=== PATIENT | female | born 1950 | race Caucasian/White ===

== ENCOUNTER 2024-07-29 13:44 | Outpatient (AMB) | payer OTHER, SELFPAY ==
[2024-07-29 13:55] VITALS: BP 135/89; PULSE 72; RESP 18; TEMP 36.2; O2SAT 97; BMI 33.5
--- NOTE | 2024-07-29 13:55 | PD.ORTHCLVIS ---
Vital signs 07/29/24 13:55 Height 1.65 m Height Method Stated Weight 91.172 kg Weight Measurement Method Standing Scale BMI 33.5 BP 135/89 H Blood Pressure Source Automatic Cuff Blood Pressure Location Right Upper Arm Position Sitting Respiration 18 Pulse 72 Pulse Source Monitor Temp 97.1 F Temp Source Temporal Artery Scan Pulse Oximetry (%) 97 Oxygen Delivery Method Room Air Med/Allergies Allergies & Medications Allergies shellfish derived Allergy (Mild, Verified 07/29/24 13:56) Mouth,throat, swelling iodine Allergy (Unknown, Verified 07/29/24 13:56) Medication Reconciliation duloxetine 60 mg capsule,delayed release (Cymbalta) 60 mg PO BID 01/10/19 [History Confirmed 07/29/24] gabapentin 300 mg tablet 300 mg PO BID 05/18/21 [History Confirmed 07/29/24] glipizide 2.5 mg tablet, extended release 24 hr 2.5 mg PO DAILY 05/18/21 [History Confirmed 07/29/24] lisinopril 2.5 mg tablet 2.5 mg PO QDAY 05/18/21 [History Confirmed 07/29/24] diclofenac potassium 50 mg tablet 50 mg PO QDAY 07/18/23 [History Confirmed 07/29/24] esomeprazole magnesium 40 mg capsule,delayed release 40 mg PO QDAY 07/18/23 [History Confirmed 07/29/24] meloxicam 7.5 mg tablet 7.5 mg PO BID #45 tabs 07/18/23 [Rx Confirmed 07/29/24] tizanidine 2 mg capsule 2 mg PO Q8H PRN 07/18/23 [History Confirmed 07/29/24] meloxicam 7.5 mg tablet 7.5 mg PO BID #45 tabs 10/27/23 [Rx Confirmed 07/29/24] gabapentin 600 mg tablet 600 mg PO QDAY 07/29/24 [History Confirmed 07/29/24] lidocaine 4 % topical patch 1 patch topical QDAY PRN 07/29/24 [History Confirmed 07/29/24] Subjective Visit Visit for: follow up visit, knee and injections Immunization / Flu Flu Vaccine in the Last 12 Months: Yes Flu Vaccine Exclusion Criteria: Already Received History of Present Illness Chief complaint: KNEE INJECTIONS Date of injury / onset of symptoms: last friday Patient is a pleasant 72-year-old female whose had several years of left knee pain. The patient had an injection 5 months ago and she is doing well. The injections to started wearing off and she would like to get new ones today. 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 Exam Exam Patient is in no acute distress and is cooperative with the examination today. Breathing is nonlabored. Patient has a normal mood and affect. The patient has a gait that is antalgic Bilateral extremities were evaluated and demonstrates sensation intact to light touch. Palpable pedal pulses are present. No significant edema is present. Bilateral hips were examined. The patient has no pain with log roll of the hips. Internal rotation to 30 degrees and external rotation to 30 degrees is painless. Negative FADIR. Right knee was examined today. The right knee is in reasonable alignment. Range of motion from 0-120 degrees. Knee is stable to varus and valgus as well as AP translation with <5mm. Patient has a negative McMurrays. There is no pain with patellofemoral compression and no crepitus noted. The knee is nontender to palpation. Left knee was examined today. The left knee is in [neutral] alignment. Range of motion from [0-110] degrees. Knee is stable to varus and valgus as well as AP translation with <5mm. Patient has a [negative] McMurrays. There is [no] pain with patellofemoral compression and [no] crepitus noted. The knee is tender to palpation [diffusely]. We obtained new weightbearing x-rays. This demonstrates severe joint space narrowing worse on the left than the right. There is complete obliteration of the joint space. There is varus arthritis Assessment and Plan Problem List (1) Arthritis of both knees: Status: Acute Plan: 72-year-old female with severe left knee osteoarthritis worse on the left than the right. We discussed nonoperative and operative options. She has done really well with cortisone injections would like new ones today Recommend knee cortisone injections as patient would like to proceed with conservative treatment at this time. The risks and benefits of the procedure were reviewed with the patient and patient gave verbal consent to continue with the procedure. Procedure: performed by Dr. Cook Using sterile technique the Bilateral knees were thoroughly prepped with alcohol, and approximately 1 cc of Kenalog 40 mg/mL and 4 cc of 1% lidocaine was injected into each knee without resistance into the medial tibial femoral joint space. The patient tolerated the procedure. Advanced Care Planning Discussion Advance care planning discussed with:: patient Office Procedures GNS Level of Care Nursing/Assessment Patient Status: Established Patient Nursing Assessment/Reassesment: Medication Reconciliation, Update PMH in EMR and Vital Signs Coordination of Care: Complex Care and Chronic Disease 1-5, Education Complex Pt/Fam, Consent,records obtained, informed consent, Results/Orders obtained and Staff clarify orders New Patient Charge New Patient Point Charge: [employer]ER Level 3 (0585-9315) Established Patient Charge Established Patient Point Assignment: 95 Surgical Proc/IM SQ injection Major Surgical Procedure: Yes (KNEE INJECTIONS ) Medication Given Medication Given Medication Given: Yes Documented Dose Given: 8 Route: Infiitration Medication Given Medication Given Medication Given: Yes Documented Dose Given: 2 Route: Infiitration Office Meds Xylocaine 10 mg/mL (1 %) injection solution Performing Provider: Eric Cook MD Performing Location: [facility] Administered by: Eric Cook MD on 07/29/24 14:35 Dose Route Admin Location Dispensed Lot Number Expiration Date [facility] Ball Holder 40 mL Infiltration 40 mL [id number] [employer] triamcinolone acetonide 40 mg/mL suspension for injection Performing Provider: Eric Cook MD Performing Location: [facility] Administered by: Eric Cook MD on 07/29/24 14:35 Dose Route Admin Location Dispensed Lot Number Expiration Date [facility] Ball Holder 80 mg intra-articular 2 mL [id number] [employer] Past Medical History Past Medical History Have you ever been diagnosed with any of the following: Neurological Problems Cerebrovascular Accident (CVA): No Seizures: No Peripheral Neuropathy: Yes Cardiology Problems Hypercholesterolemia: Yes Congestive Heart Failure: No Edema: Yes Hypertension: Yes Respiratory Problems Chronic Obstructive Pulmonary Disease (COPD): No Stomache/Intestinal Problems Diverticulitis: Yes Hemorrhoids: Yes Gastroesophageal Reflux Disease: Yes Genital/Urinary Problems Renal Disease: No Reproductive Problems Pelvic Inflammatory Disease: No Head,Eye,Nose,Throat Problems Cataracts: Yes Endocrine Problems Diabetes Mellitus Type 1: No Diabetes Mellitus Type 2: Yes Other Problems Hospitalization: Yes Down Syndrome: No Developmental Delay: No Shingles: No Falls: No Blood Transfusions: No Blood Transfusion Reaction: No Anesthesia Reactions: Yes Organ Transplant: No Cancer: No Surgical History Hysterectomy: Yes
== END 2024-07-29 14:09 | disposition home or self-care (01) ==
LOC: HODSRG 13:44
PROVIDERS: PCP Internal Medicine; Referring Provider Internal Medicine; Supervising Provider Orthopaedic Surgery Adult Reconstructive Orthopaedic Surgery; Visit Provider Orthopaedic Surgery Adult Reconstructive Orthopaedic Surgery
DX: M17.0 Bilateral primary osteoarthritis of knee (principal); I10 Essential (primary) hypertension; E78.00 Pure hypercholesterolemia, unspecified; E11.9 Type 2 diabetes mellitus without complications; K21.9 Gastro-esophageal reflux disease without esophagitis
CPT/HCPCS: 20610; 99203; J3301; J3490; G0463

== ENCOUNTER 2024-08-30 11:10 | Day surgery (SDC) | payer OTHER, MEDICAID, SELFPAY ==
[2024-08-30] VITALS (10 sets, daily range): BP systolic 110–141; BP diastolic 68–91; PULSE 62–85; RESP 14–22; TEMP 36.7–36.9; O2SAT 89–97; BMI 33.1
[2024-08-30] MEDS: DiphenhydrAMINE INJ 50 MG/ML VIAL 25 MG IV (13:29)
[2024-08-30] MEDS: MIDAZOLAM INJ 1 MG/ML VIAL 2 ML (ASD USE ONLY) 2 MG IV (13:47)
[2024-08-30] MEDS: fentaNYL CIT INJ 50 mCg/ML AMP 2ML (ASD USE ONLY) IV (13:47)
--- NOTE | 2024-08-30 15:12 | SUR.PHASEII ---
1439 Pt more awake and alert. Denies pain or N/V. Abd remains soft. Pt passing flatus. Edvin PO fluids. 1500 Pt assessment unchanged. No complaints. Pt amb with steady gait. Assisted getting dressed by her caregiver, Opal. Aware of large diverticulosis and Dr's inability to complete colonoscopy. DC instructions given. Both state understanding. Pt meets dc criteria-to home.
== END 2024-08-30 15:00 | disposition home or self-care (01) ==
PROVIDERS: PCP Internal Medicine; Referring Provider Specialist; Visit Provider Specialist
PROC: 0DBE8ZX Excision of Large Intestine, Via Natural or Artificial Opening Endoscopic, Diagnostic (ICD-10-PCS; CPT 45380; principal; 2024-08-30 11:30)
PROC: (CPT 43239; 2024-08-30 11:30)
DX: K64.9 Unspecified hemorrhoids (principal); K57.30 Diverticulosis of large intestine without perforation or abscess without bleeding; K21.00 Gastro-esophageal reflux disease with esophagitis, without bleeding; K29.70 Gastritis, unspecified, without bleeding
CPT/HCPCS: 45378; 43239; A4649; J1200; J2250; J3010

== ENCOUNTER 2024-10-15 18:33 | Emergency (ER) | payer OTHER, MEDICAID, SELFPAY ==
[2024-10-15 18:39] VITALS: BP 88/73; PULSE 90; RESP 16; TEMP 36.4; O2SAT 94
[2024-10-15 18:40] VITALS: PULSE 77; RESP 16
--- NOTE | 2024-10-15 18:40 | EKG_ITS ---
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
[2024-10-15 18:52] VITALS: BMI 34.3
--- NOTE | 2024-10-15 19:08 | EDNOTE_ITS ---
ED Syncope RME/HPI General Chief Complaint: Syncope / Near Syncope Stated Complaint: HYPOTENSION Time Seen by Provider: 10/15/24 18:58 Arrival date/time: 10/15/24 18:33 RME / HPI RME / HPI narrative: Dr. Henning?s Main ED Evaluation: 73yo female ANDIE from home presents to the ED for a chief complaint of syncope. Patient states she has been generally weak and fatigued for the last few days. She saw dentist earlier this week for a abscess and has been on antibiotics and ibuprofen. She has follow-up this week for removal of the tooth/drainage, however she feels the swelling is almost completely abated. Initially with the dental pain, she states she has not been eating or drinking much initial to 2 days. She reports being chronically constipated, but had one episode of diarrhea today. She does not remember passing out tonight. She denies any N/V, fever, chills, chest pain, abdominal pain or any other associated symptoms. Related Data Home Medications ?Medication ?Instructions ?Recorded ?Confirmed duloxetine 60 mg capsule,delayed 60 mg PO BID 01/10/19 08/30/24 release (Cymbalta) glipizide 2.5 mg tablet, extended 2.5 mg PO DAILY 05/18/21 08/30/24 release 24 hr lisinopril 2.5 mg tablet 2.5 mg PO QDAY 05/18/21 08/30/24 diclofenac potassium 50 mg tablet 50 mg PO QDAY 07/18/23 08/30/24 esomeprazole magnesium 40 mg 40 mg PO QDAY 07/18/23 08/30/24 capsule,delayed release tizanidine 2 mg capsule 4 mg PO Q8H PRN Pain 07/18/23 08/30/24 gabapentin 600 mg tablet 600 mg PO TID 07/29/24 08/30/24 lidocaine 4 % topical patch 1 patch topical QDAY PRN Pain 07/29/24 08/30/24 atorvastatin 20 mg tablet 20 mg PO QDAY 08/30/24 08/30/24 propranolol 10 mg tablet 10 mg PO QDAY 08/30/24 08/30/24 Allergies Allergy/AdvReac Type Severity Reaction Status Date / Time shellfish derived Allergy Mild Mouth,throat, Verified 08/30/24 12:20 swelling iodine Allergy Unknown Verified 12/02/24 12:20 Review of Systems Review of Systems Systems Reviewed: All systems reviewed, normal except as documented Narrative Review of Systems: Gen: No fever, no chills, no weight loss, + fatigued EYES: No discharge, no visual changes, no pain HEENT: No ear pain, no congestion, no sore throat PULM: No shortness of breath, no cough, no congestion CV: No chest pain, no dyspnea on exertion, no palpitations GI: No nausea, no vomiting, + diarrhea, no pain, + constipation : No frequency, no urgency, no dysuria Musc/skel: No joint pain, no back pain Skin: No rash. Warm and dry. Psyc: No hallucinations, no depression Heme/Lymph: No easy bleeding or bruising tendencies Neuro: + weakness, no headache Past Medical History Past Medical History NEUROLOGIC: Positive Neurological Disorders (concussion) and Peripheral Neuropathy; Negative Cerebrovascular Accident or Seizures CARDIAC: Positive Cardiac Disorders, Hypercholesterolemia, Edema and Hypertension; Negative Congestive Heart Failure RESPIRATORY: Positive Asthma; Negative Chronic Obstructive Pulmonary Disease (COPD) GASTROINTESTINAL: Positive Gastrointestinal Disorders, Diverticulitis, Diverticulosis, Hiatal Hernia, Hemorrhoids, Gastroesophageal Reflux Disease and Obesity GENITOURINARY: Positive Genitourinary Disorders and Kidney Stones; Negative Renal Disease REPRODUCTIVE: Positive Previous Pregnancies; Negative Pelvic Inflammatory Disease MUSCULOSKELETAL: Positive Musculoskeletal Disorders and Arthritis ENT: Positive Cataracts ENDOCRINE: Positive Endocrine Disorders and Diabetes Mellitus Type 2; Negative Diabetes Mellitus Type 1 HEMATOLOGIC: Positive Blood Disorders, Anemia and Clotting Problems PSYCHO/SOCIAL: Positive Depression OTHER HISTORY: Positive Hospitalization, Falls, Blood Transfusions, Chicken Pox, Measles and Mumps; Negative Autoimmune Disease, Down Syndrome, Developmental Delay, Shingles, Blood Transfusion Reaction, Anesthesia Reactions, Organ Transplant or Cancer Surgical History SURGICAL: Positive Cardiac Surgery, Angiogram, Oral Surgery, Abdominal Surgery, Open Reduction Internal Fixation, Hysterectomy and Section; Negative Endocrine Surgery, Ear Surgery, Joint Replacement, Neurologic Surgery, Mastectomy, Vasectomy or Organ Transplant Social History SMOKING STATUS: Never smoker ED Exam Narrative Physical exam: GENERAL APPEARANCE: AxOx4, mildly lethargic, no acute distress. HEENT: NC, AT. MMM. EOMI, clear conjunctiva, oropharynx clear, DMM. NECK: Supple without lymphadenopathy. No stiffness or restricted ROM. HEART: Normal rate and regular rhythm, normal S1/S1, no m/r/g LUNGS: CTAB, moving air well. No crackles or wheezes are heard. ABDOMEN: Soft, nontender, nondistended with good bowel sounds heard. BACK: No midline C/T/L spine pain or deformity, No CVAT, no obvious deformity. EXTREMITIES: Without cyanosis, clubbing or edema. MUSCULOSKELETAL: FROM of all major joints, no chest tenderness NEUROLOGICAL: Grossly nonfocal. Alert and oriented, moving all 4 extremities. CN not formally tested but appear grossly intact. Observed to ambulate with normal gait. Skin: Warm and dry without any rash. Slightly pale. Course Course Course Narrative: CXR is ordered for determining the etiology of weakness. Patient was road tested after receiving 2L IVF and was able to walk without any difficulty. Patient states she feels better and is stable to be discharged home. Quality Measures none Orders Category Date Time Status EKG (ED ONLY) *Do not use* NOW Care 10/15/24 18:40 Completed EKG (ED Only) Stat Exams 10/15/24 18:40 Draft XR chest 1V Stat Exams 10/15/24 19:10 Completed CBC Stat Lab 10/15/24 19:21 Completed CMP [Comprehensive Metabolic Panel] Stat Lab 10/15/24 20:26 Completed Lactate (Lactic Acid) Stat Lab 10/15/24 19:21 Completed Procalcitonin Stat Lab 10/15/24 20:26 Completed Troponin I Stat Lab 10/15/24 20:26 Completed Urinalysis Stat Lab 10/15/24 21:05 Completed Sodium Chloride 0.9% 1000 ml [Ns] 1,000 ml Med 10/15/24 19:09 Discontinued IV 999 mls/hr Sodium Chloride 0.9% 1000 ml [Ns] 1,000 ml Med 10/15/24 22:39 Discontinued IV 999 mls/hr Reevaluation(s) Reevaluation #1: Patient states she still feels generally weak. Additional liter of fluids ordered. Time: 22:39 Vital Signs Vital signs: Vital Signs Temperature 97.5 F 10/15/24 18:39 Pulse Rate 90 10/15/24 18:39 Respiratory Rate 16 10/15/24 18:39 Blood Pressure 88/73 L 10/15/24 18:39 Pulse Oximetry (%) 94 L 10/15/24 18:39 Oxygen Delivery Method Room Air 10/15/24 18:39 Syncope MDM Narrative MDM Narrative:: Scribe Attestation: 10/15/24 Brooke Loyd, am scribing for and in the presence of Dr. Henning. Patient data External records reviewed:: [facility] previous records (Per chart review, patient was seen here on 04/21/24 for an accidental fall.) Clinical information provided by:: patient Social determinants that could affect healthcare access:: none Patient has the following chronic illnesses:: HTN, HLD, asthma, DMII How is presenting disease/condition affected by chronic disease/condition?: uneffected by Evaluation data The following diagnostics were reviewed and interpreted by me:: lab results, radiology exam(s) and EKG tracing(s) Lab and/or radiology exams considered but not ordered:: none Interpretation Summary: WBC count is elevated at 13.2, Lactate is normal, Procalcitonin is normal, BUN is 21, UA is unremarkable, according to my interpretation. EKG done at 1859, NSR, rate of 83, normal axis, normal intervals, no acute ST or T-wave changes, according to my interpretation. ---- [facility] Report Signed Patient: MATTHEW PRINCE [facility]. Record#: [id number] Birthdate: 1950 Age/Sex: 73 / F Location: [facility] Attending Dr: Ordering Physician: Jose Henning MD Date of Service: 10/15/24 Procedure(s): XR chest 1V Accession Number(s): [id number] cc: Jose Henning MD; Irvin Galvez MD; Saida Grant MD~ Examination: AP chest single view Technique one AP portable upright chest single view Exam date and time: October 15, 2024 1941 hrs. Comparison April 29, 2019 Indications: Weakness shortness of breath today. Findings: Large retrocardiac gastric hernia Mild opacity left base No pulmonary edema Moderate osteopenia Impression: Suspicious for early pneumonia left base Dictated By: Irvin Galvez MD Signed By: <Electronically signed by Irvin Galvez MD in OV> 10/15/24 7021 Medications / Prescriptions Medications or Prescriptions considered but not ordered:: none Medication administrations:: Medication Administration History Discontinued Medications Sodium Chloride (Ns) 1,000 mls @ 999 mls/hr IV .Q1H1M ONE Stop: 10/15/24 20:09 Last Infusion: 10/15/24 20:13 Dose: Infused Documented By: Admin: 10/15/24 19:23 Dose: 999 mls/hr Documented By: PAM Sodium Chloride (Ns) 1,000 mls @ 999 mls/hr IV .Q1H1M ONE Stop: 10/15/24 23:39 Last Infusion: 10/16/24 00:07 Dose: Infused Documented By: Admin: 10/15/24 22:46 Dose: 999 mls/hr Documented By: PAM see above Consultations Consultation(s) initiated? (list below): No Diagnosis Syncope Differential Diagnosis: vasovagal syncope, dehydration and other (el ectrolyte abnormality) Most likely diagnosis given after review of the tests above:: see below Admission Indicated Admission indicated?: not indicated Admission Request Was there a request for admission?: No Disposition Plan Disposition Plan: Discharge Discharge Attestation Discharge Attestation: The patient and all family members were given an opportunity to ask questions and understood the discharge instructions. Discharge instructions specifically effects, indications for sooner follow up or return to the emergency department, and the expected course of current diagnosis. Patient condition: Stable Discharge Plan Plan Patient Disposition: HOME (Self Care) Prescriptions/Referrals Prescriptions/Med Rec: No Action gabapentin 600 mg tablet 600 mg PO TID lidocaine 4 % adhesive patch,medicated 1 patch topical QDAY PRN (Reason: Pain) duloxetine [Cymbalta] 60 mg capsule,delayed release(DR/EC) 60 mg PO BID diclofenac potassium 50 mg tablet 50 mg PO QDAY tizanidine 2 mg capsule 4 mg PO Q8H PRN (Reason: Pain) esomeprazole magnesium 40 mg capsule,delayed release(DR/EC) 40 mg PO QDAY glipizide 2.5 mg Tablet Extended Release 24hr 2.5 mg PO DAILY lisinopril 2.5 mg Tablet 2.5 mg PO QDAY atorvastatin 20 mg tablet 20 mg PO QDAY Patient Comments: TAKE 1 TABLET BY MOUTH EVERYDAY AT BEDTIME propranolol 10 mg tablet 10 mg PO QDAY Patient Comments: TAKE 1 TABLET BY MOUTH EVERY DAY AT NIGHT Referrals: Saida Grant MD [Primary Care Provider] - In 1 week Problem List Clinical Impression: Dehydration Patient/Caregiver Discharge Instructions Education Materials: ED Dehydration (Adult) Additional Instructions: It is okay to follow-up with your dentist as scheduled. Drink extra fluids for the next 24 hours. Avoid heavy, greasy, fatty foods. You can return to the emergency department sooner symptoms worsen or if you notice any new, concerning issues Print Language: Kazakh Stand Alone Forms: Janette Award Info., Patient Portal Info Letter
[2024-10-15 19:20] VITALS: BP 78/60; PULSE 88; RESP 20; O2SAT 97
[2024-10-15] MEDS: SODIUM CHLORIDE 0.9% 1000 ML 1,000 ML 999 ML IV ×2 (19:23→22:46)
[2024-10-15 19:32] LABS: Lactate (Lactic Acid) 1.7 mMol/L (0.4-2.0)
[2024-10-15 19:52] LABS: Basophils # (Auto) 0.1 Thou/mm3 (0.0-0.2); Basophils % (Auto) 1 % (0-2.5); Eosinophils # (Auto) 0.1 Thou/mm3 (0.0-0.5); Eosinophils % (Auto) 1 % (0-10); Hematocrit 44.9 % (36.0-46.0); Hemoglobin 15.3 g/dL (12.0-16.0); Immature Granulocytes % (Auto) 1 % (0-0); Immature Granulocytes Auto 0.07 Thou/mm3 (0.00-0.00); Lymphocytes # (Auto) 1.5 Thou/mm3 (1.0-4.8); Lymphocytes % (Auto) 12 % (10-50); Mean Corpuscular HGB Conc 34.1 g/dl (31.0-37.0); Mean Corpuscular Hemoglobin 31.3 pg (25.0-35.0); Mean Corpuscular Volume 92 fL (80-100); Monocytes # (Auto) 1.4 Thou/mm3 (0.0-0.8); Monocytes % (Auto) 11 % (0-12); Neutrophils % (Auto) 76 % (37-80); Nucleated Red Blood Cell % 0 /100 WBC (0); Platelet Count 290 Thou/mm3 (140-440); RDW Standard Deviation 44.3 fL (36.4-46.3); Red Blood Count 4.89 Miln/mm3 (4.00-5.20); White Blood Count 13.2 Thou/mm3 (3.6-11.0)
[2024-10-15 20:13] VITALS: BP 126/88; PULSE 85; RESP 19; O2SAT 96
[2024-10-15 21:15] LABS: Collection Type, Urine Clean Catch
[2024-10-15 21:15] LABS: Alanine Aminotransferase 17 U/L (10-49); Albumin/Globulin Ratio 1.5 (1.2-2.2); Anion Gap 11 (7-16); Aspartate Amino Transferase 22 U/L (0-34); BUN/Creatinine Ratio 21 Ratio (12-20); Bilirubin,Total 0.7 mg/dL (0.3-1.2); Blood Urea Nitrogen 27 mg/dL (9-23); Calcium 9.5 mg/dL (8.3-10.6); Calcium (Corrected) 9.5 mg/dL (8.5-10.1); Carbon Dioxide 22.2 mMol/L (20.0-31.0); Chloride 103 mMol/L (98-107); Creatinine (Component) 1.3 mg/dL (0.6-1.3); Estimated Creatinine Clearance 42.7 mL/min (>60); Globulin 2.6 gm/dL (2.3-3.5); Glucose 122 mg/dL (74-106); Osmolality,Calculated 278 (275-295); Potassium 4.3 mMol/L (3.4-5.1); Sodium 136 mMol/L (136-145); Total Protein 6.6 gm/dL (5.7-8.2); Troponin I < 0.020 ng/mL (0.0-0.045); eGFR 44 See Note
[2024-10-15 21:16] LABS: Alkaline Phosphatase 107 U/L (46-116); Procalcitonin 0.28 ng/ml (0.0-0.49)
[2024-10-15 21:20] LABS: Bilirubin,Urine Negative (Negative); Blood,Urine Negative (Negative); Clarity,Urine Clear (Clear/Hazy); Color,Urine Yellow (Lt Yel-Yel); Glucose, Urine Negative (Negative); Hyaline Casts,Urine < 1 /hpf (0-1); Ketones,Urine Trace (Negative); Leukocyte Esterase,Urine Negative (Negative); Nitrite,Urine Negative (Negative); PH,Urine 5.5 (5.0-7.0); Protein,Urine Trace (Neg - Trace); RBC,Urine < 1 /hpf (0-3); Specific Gravity,Urine 1.016 (1.001-1.035); Squamous Epithelial Cell,Urine 1 /hpf (0-5); WBC,Urine 7 /hpf (0-5)
[2024-10-15 22:30] VITALS: BP 128/77; PULSE 95; RESP 16; O2SAT 97
[2024-10-15 23:52] VITALS: BP 141/76; PULSE 96; RESP 19; TEMP 36.7; O2SAT 95
--- NOTE | 2024-10-16 00:25 | PC.NURSE ---
Pt able to ambulate to and from restroom, unassisted and with steady gait. MD Henning aware.
[2024-10-16 01:38] VITALS: BP 109/74; PULSE 93; RESP 18; O2SAT 99
== END 2024-10-16 01:49 | disposition home or self-care (01) ==
PROVIDERS: Emergency Provider Emergency Medicine; PCP Internal Medicine
DX: E86.0 Dehydration (principal); K59.09 Other constipation
CPT/HCPCS: 36415; 71045; 80053; 81001; 83605; 84145; 84484; 85025; 93005; 96360; 96361; 99284; J7030

== ENCOUNTER → 2024-10-20 | Outpatient (CLI) | payer MEDICARE, MEDICAID, SELFPAY ==
[2024-10-20 12:51] LABS: Basophils # (Auto) 0.1 Thou/mm3 (0.0-0.2); Basophils % (Auto) 1 % (0-2.5); Eosinophils # (Auto) 0.3 Thou/mm3 (0.0-0.5); Eosinophils % (Auto) 4 % (0-10); Hematocrit 38.8 % (36.0-46.0); Hemoglobin 12.9 g/dL (12.0-16.0); Immature Granulocytes % (Auto) 1 % (0-0); Immature Granulocytes Auto 0.07 Thou/mm3 (0.00-0.00); Lymphocytes # (Auto) 2.4 Thou/mm3 (1.0-4.8); Lymphocytes % (Auto) 35 % (10-50); Mean Corpuscular HGB Conc 33.2 g/dl (31.0-37.0); Mean Corpuscular Hemoglobin 30.7 pg (25.0-35.0); Mean Corpuscular Volume 92 fL (80-100); Monocytes # (Auto) 0.6 Thou/mm3 (0.0-0.8); Monocytes % (Auto) 9 % (0-12); Neutrophils # (Auto) 3.4 Thou/mm3 (1.8-7.7); Neutrophils % (Auto) 50 % (37-80); Nucleated Red Blood Cell % 0 /100 WBC (0); Platelet Count 310 Thou/mm3 (140-440); RDW Standard Deviation 44.8 fL (36.4-46.3); White Blood Count 6.8 Thou/mm3 (3.6-11.0)
[2024-10-20 13:06] LABS: Albumin, Serum 3.8 gm/dL (3.4-4.8); Anion Gap 6 (7-16); BUN/Creatinine Ratio 18 Ratio (12-20); Blood Urea Nitrogen 11 mg/dL (9-23); Calcium 9.5 mg/dL (8.3-10.6); Calcium (Corrected) 9.7 mg/dL (8.5-10.1); Carbon Dioxide 31.4 mMol/L (20.0-31.0); Cardiac Risk Estimate 2.1 RATIO (3.7-5.6); Chloride 103 mMol/L (98-107); Cholesterol 98 mg/dL (132-200); Creatinine (Component) 0.6 mg/dL (0.6-1.3); Glucose 134 mg/dL (74-106); HDL Cholesterol 47 mg/dL (40-60); LDL Cholesterol,Calculated 26 mg/dL (0-130); Osmolality,Calculated 280 (275-295); Phosphorous 3.8 mg/dL (2.4-5.1); Potassium 4.4 mMol/L (3.4-5.1); Sodium 140 mMol/L (136-145); Thyroid Stimulating Hormone 2.32 uIU/mL (0.55-4.78); Triglycerides 123 mg/dL (30-150); eGFR > 60 See Note
[2024-10-20 13:10] LABS: Glucose Estimated Average 148 mg/dL (80-131); Hemoglobin A1C 6.8 % Hgb (4.8-6.0)
[2024-10-20 13:32] LABS: Collection Type, Urine Clean Catch
[2024-10-20 14:26] LABS: Creatinine MALB Rnd Ur 42 mg/dL (30-125); Microalbumin, Random Urine < 3 mg/L (0-300)
[2024-10-20 14:32] LABS: Bacteria,Urine 1+; Bilirubin,Urine Negative (Negative); Blood,Urine Negative (Negative); Clarity,Urine Turbid (Clear/Hazy); Color,Urine Lt-Yellow (Lt Yel-Yel); Glucose, Urine Negative (Negative); Ketones,Urine Negative (Negative); Leukocyte Esterase,Urine Positive (Negative); Nitrite,Urine Negative (Negative); Protein,Urine Negative (Neg - Trace); RBC,Urine 6 /hpf (0-3); Specific Gravity,Urine 1.012 (1.001-1.035); Squamous Epithelial Cell,Urine 17 /hpf (0-5); Urobilinogen,Urine Negative mg/dL (0.0-1.0); WBC,Urine 13 /hpf (0-5)
== END | disposition home or self-care (01) ==
LOC: COPL 11:46
PROVIDERS: PCP Internal Medicine; Referring Provider Internal Medicine; Visit Provider Internal Medicine
DX: E11.9 Type 2 diabetes mellitus without complications (principal); I10 Essential (primary) hypertension; E78.5 Hyperlipidemia, unspecified; N17.9 Acute kidney failure, unspecified
CPT/HCPCS: 36415; 80061; 80069; 81001; 82043; 82570; 83036; 84443; 85025

== ENCOUNTER 2024-11-22 05:27 | Emergency (ER) | payer OTHER, MEDICAID, SELFPAY ==
[2024-11-22 05:32] VITALS: BP 107/61; PULSE 74; RESP 18; TEMP 36.9; O2SAT 95
[2024-11-22 05:34] VITALS: BMI 51.0
[2024-11-22 05:41] VITALS: PULSE 72; RESP 18; O2SAT 98
[2024-11-22 05:55] VITALS: PULSE 72; RESP 18; O2SAT 98
--- NOTE | 2024-11-22 06:15 | XR_ITS ---
Examination: CT brain head without contrast. 2-D sagittal coronal reconstructions Date and time of exam:November 22, 2024 0631 hrs. Indications: Headache neck pain beginning 4 days ago CTDI: vol (mGy):49.8 DLP: (mGycm):1033 Technique: Multiple CT axial sections of the brain have been obtained, 5 mm slice thickness. Contrast has not been administered. 2-D sagittal, coronal reconstructions have been obtained Low dose protocols were performed. One or more of the following dose reduction techniques were used; automated exposure control, adjustment of the mA and/or KV according to patient size, use of iterative reconstruction technique. Findings: No significant ventricular enlargement. Intra-axial or extra-axial hemorrhage density is not seen. No mass effect or midline shift Basal cisterns are not remarkable. Fourth ventricle is midline. Cranial vault intact. Impression: Negative for acute hemorrhage, mass effect or midline shift Advise clinical correlation and follow-up accordingly
--- NOTE | 2024-11-22 06:15 | XR_ITS ---
Examination: CT cervical spine without contrast 2-D sagittal reconstructions 2-D coronal reconstructions 3-D reconstructions. Exam date and time:November 22, 2024 0631 hrs. Indications: Patient fell today with injury to the neck, neck pain CTDI:vol (mGy) 7.96 DLP: (mGycm) 186 Technique: Multiple 2 mm axial sections of the cervical spine have been obtained. The coronal and sagittal reconstructions have been obtained. 3-D reconstructions have been obtained. Low dose protocols were performed. One or more of the following dose reduction techniques were used; automated exposure control, adjustment of the mA and/or KV according to patient size, use of iterative reconstruction technique. Findings: Axial sections demonstrate intact base of the skull. C1 exhibit satisfactory relationship to the odontoid. No acute cervical vertebral body fracture seen. Alignment posterior spinous processes satisfactory. Impression: No acute cervical fracture.
[2024-11-22] MEDS: IBUPROFEN TAB 400 MG TABLET PO (06:54)
[2024-11-22] MEDS: BACLOFEN 10 MG TABLET PO (06:55)
[2024-11-22 07:40] VITALS: BP 110/71; PULSE 77; RESP 17; TEMP 36.8; O2SAT 97
--- NOTE | 2024-11-22 07:46 | PD.EDNECK ---
ED Neck Injury Pain RME/HPI General Chief Complaint: Neck Pain/Injury Stated Complaint: NECK PAIN Time Seen by Provider: 11/22/24 06:12 Arrival date/time: 11/22/24 05:27 RME / HPI RME / HPI Narrative: This section includes all my notes and documentations, including HPI, PE, and ED course.? Sharif Marr MD HPI: 74-year-old female here to be evaluated with severe left-sided neck pain. Almost fell about 5 days ago at home. She tripped. She caught herself on a wall. No head injury. Ever since, she reports left-sided neck pain, worse with certain movement. No radiation of the pain. No severe headache. No fever or chills. No nausea or vomiting. No loss of power in arms or legs. No numbness or tingling. No other complaints. ROS: All negative except as documented in HPI. Physical Exam: General:? Alert and oriented.? No acute distress when remaining still.?? Eyes:? Conjunctivae and lids clear.? PERRL. EOMI. ENT:? No nasal congestion.? Neck:? Supple.? No midline tenderness. Left-sided muscle spasms noted. Heart:? RRR.? Lungs:? No respiratory distress.? Good air movement.? No rhonchi, wheezing, rales.?? Abdomen:? Soft and nontender.?? Legs:? No clubbing, cyanosis, edema.? Skin:? Warm and dry.?? Neuro:? Alert and oriented X 3.??Cranial nerves II to XII grossly normal. No peripheral motor deficits. I reviewed all diagnostic test results. My review of the head CT report is?negative for acute hemorrhage, mass effect or midline shift. My review of the cervical spine CT report is?no acute cervical fracture. At this point, diagnoses include?neck muscle strain. Treatment here included?ibuprofen and baclofen. Significant improvement noted. Recommended supportive care. Based on my best medical judgment, made decision no further evaluation or treatment indicated at this time.? Patient understands and agrees to the discharge instructions customized and printed, see below. Discharge Instructions from Dr. Marr printed for you: 1. After evaluation, you sustained neck muscle strain, small tears of the muscle fibers. Will take about a month to completely heal. 2. Soft neck collar as needed. 3. Tylenol with codeine for pain. 4. See a private doctor next week if not significantly better. 5. Seek immediate medical care with worsening or with any concerns. Sharif Marr MD Related Data Home Medications ?Medication ?Instructions ?Recorded ?Confirmed duloxetine 60 mg capsule,delayed 60 mg PO BID 01/10/19 11/22/24 release (Cymbalta) glipizide 2.5 mg tablet, extended 2.5 mg PO DAILY 05/18/21 11/22/24 release 24 hr lisinopril 2.5 mg tablet 2.5 mg PO QDAY 05/18/21 11/22/24 diclofenac potassium 50 mg tablet 50 mg PO QDAY 07/18/23 11/22/24 esomeprazole magnesium 40 mg 40 mg PO QDAY 07/18/23 11/22/24 capsule,delayed release tizanidine 2 mg capsule 4 mg PO Q8H PRN Pain 07/18/23 11/22/24 gabapentin 600 mg tablet 600 mg PO TID 07/29/24 11/22/24 lidocaine 4 % topical patch 1 patch topical QDAY PRN Pain 07/29/24 11/22/24 atorvastatin 20 mg tablet 20 mg PO QDAY 08/30/24 11/22/24 propranolol 10 mg tablet 10 mg PO QDAY 08/30/24 11/22/24 albuterol sulfate 90 mcg/actuation 1 puff inhalation QDAY PRN 11/22/24 11/22/24 aerosol inhaler shortness of breath or wheezing Previous Rx's ?Medication ?Instructions ?Recorded acetaminophen 300 mg-codeine 30 mg 1 tab PO Q8H PRN pain #10 tabs 11/22/24 tablet Allergies Allergy/AdvReac Type Severity Reaction Status Date / Time shellfish derived Allergy Mild Mouth,throat, Verified 11/22/24 05:50 swelling iodine Allergy Unknown Verified 11/22/24 05:50 Review of Systems Review of Systems Systems Reviewed: All systems reviewed, normal except as documented Past Medical History Past Medical History NEUROLOGIC: Positive Neurological Disorders and Peripheral Neuropathy CARDIAC: Positive Cardiac Disorders, Hypercholesterolemia, Edema, Hypertension and Hypotension RESPIRATORY: Positive Asthma GASTROINTESTINAL: Positive Gastrointestinal Disorders, Diverticulitis, Diverticulosis, Hiatal Hernia, Hemorrhoids, Gastroesophageal Reflux Disease and Obesity GENITOURINARY: Positive Genitourinary Disorders and Kidney Stones REPRODUCTIVE: Positive Previous Pregnancies MUSCULOSKELETAL: Positive Musculoskeletal Disorders and Arthritis ENT: Positive Cataracts ENDOCRINE: Positive Endocrine Disorders and Diabetes Mellitus Type 2 HEMATOLOGIC: Positive Blood Disorders, Anemia and Clotting Problems PSYCHO/SOCIAL: Positive Depression OTHER HISTORY: Positive Hospitalization, Falls, Blood Transfusions, Chicken Pox, Measles and Mumps; Negative Organ Transplant Family History FAMILY HISTORY: Positive Family Respiratory Disorders (COPD) and Family Cardiac Disorders (CHF, HTN) Surgical History SURGICAL: Positive Cardiac Surgery, Angiogram, Oral Surgery, Abdominal Surgery, Open Reduction Internal Fixation, Hysterectomy and Section; Negative Organ Transplant Social History SMOKING STATUS: Never smoker ED Exam Narrative Physical exam: As noted in HPI Course Quality Measures none Orders Category Date Time Status CT cervical spine wo con Stat Exams 11/22/24 06:[address] head/brain wo con Stat Exams 11/22/24 06:15 Completed Baclofen [Lioresal] Med 11/22/24 06:16 Discontinued 10 mg PO X1 ONE Ibuprofen Tab [Motrin Tab] Med 11/22/24 06:16 Discontinued 400 mg PO X1 ONE Vital Signs Vital signs: Vital Signs Temperature 98.4 F 11/22/24 05:32 Pulse Rate 74 11/22/24 05:32 Respiratory Rate 18 11/22/24 05:32 Blood Pressure 107/61 11/22/24 05:32 Pulse Oximetry (%) 95 11/22/24 05:32 Oxygen Delivery Method Room Air 11/22/24 05:32 Pulse ox is 95% on room air which is adequate. Neck Pain Patient data External records reviewed:: [facility] previous records (I reviewed ED visit on 10/15/2024) Clinical information provided by:: patient Social determinants that could affect healthcare access:: none Patient has the following chronic illnesses:: HTN, diabetes, HLD, asthma How is presenting disease/condition affected by chronic disease/condition?: exacerbated by Evaluation data The following diagnostics were reviewed and interpreted by me:: radiology exam(s) Lab and/or radiology exams considered but not ordered:: None Interpretation Summary: My review of the head CT report is?negative for acute hemorrhage, mass effect or midline shift. My review of the cervical spine CT report is?no acute cervical fracture. Medications / Prescriptions Medications or Prescriptions considered but not ordered:: None Medication administrations:: Medication Administration History Discontinued Medications Baclofen (Baclofen 10 Mg Tablet) 10 mg PO X1 ONE Stop: 11/22/24 06:17 Last Admin: 11/22/24 06:55 Dose: 10 mg Documented By: KARLA Ibuprofen (Ibuprofen Tab 400 Mg Tablet) 400 mg PO X1 ONE Stop: 11/22/24 06:17 Last Admin: 11/22/24 06:54 Dose: 400 mg Documented By: KARLA Given Baclofen, Ibuprofen Consultations Consultation(s) initiated? (list below): No Diagnosis Neck Differential Diagnosis: disc disorder of cervical region, cervical radiculopathy, torticollis, cervical spondylosis and strain of neck muscle Most likely diagnosis given after review of the tests above:: neck muscle strain Admission Indicated Admission indicated?: not indicated Explain why admission is indicated or not indicated:: Does not meet admission criteria Admission Request Was there a request for admission?: No Disposition Plan Disposition Plan: Discharge Discharge Attestation Discharge Attestation: The patient and all family members were given an opportunity to ask questions and understood the discharge instructions. Discharge instructions specifically effects, indications for sooner follow up or return to the emergency department, and the expected course of current diagnosis. Patient condition: Stable Discharge Plan Plan Patient Disposition: HOME (Self Care) Prescriptions/Referrals Prescriptions/Med Rec: New acetaminophen-codeine 300-30 mg tablet 1 tab PO Q8H MDD 3 PRN (Reason: pain) Qty: 10 0RF No Action gabapentin 600 mg tablet 600 mg PO TID lidocaine 4 % adhesive patch,medicated 1 patch topical QDAY PRN (Reason: Pain) duloxetine [Cymbalta] 60 mg capsule,delayed release(DR/EC) 60 mg PO BID diclofenac potassium 50 mg tablet 50 mg PO QDAY tizanidine 2 mg capsule 4 mg PO Q8H PRN (Reason: Pain) esomeprazole magnesium 40 mg capsule,delayed release(DR/EC) 40 mg PO QDAY glipizide 2.5 mg Tablet Extended Release 24hr 2.5 mg PO DAILY lisinopril 2.5 mg Tablet 2.5 mg PO QDAY atorvastatin 20 mg tablet 20 mg PO QDAY Patient Comments: TAKE 1 TABLET BY MOUTH EVERYDAY AT BEDTIME propranolol 10 mg tablet 10 mg PO QDAY Patient Comments: TAKE 1 TABLET BY MOUTH EVERY DAY AT NIGHT albuterol sulfate 90 mcg/actuation HFA aerosol inhaler 1 puff INHALATION QDAY PRN (Reason: shortness of breath or wheezing) Patient Comments: INHALE 1 TO 2 PUFFS BY MOUTH 3 TIMES A DAY Referrals: Saida Grant MD [Primary Care Provider] - In 1 week Problem List Clinical Impression: Neck muscle strain Patient/Caregiver Discharge Instructions Discharge Activity: activity as tolerated Education Materials: ED Neck Sprain or Strain Additional Instructions: Discharge Instructions from Dr. Marr printed for you: 1. After evaluation, you sustained neck muscle strain, small tears of the muscle fibers. Will take about a month to completely heal. 2. Soft neck collar as needed. 3. Tylenol with codeine for pain. 4. See a private doctor next week if not significantly better. 5. Seek immediate medical care with worsening or with any concerns. Print Language: Bulgarian Stand Alone Forms: Janette Award Info., Patient Portal Info Letter
== END 2024-11-22 09:40 | disposition home or self-care (01) ==
PROVIDERS: Emergency Provider Emergency Medicine; PCP Internal Medicine
DX: S16.1XXA Strain of muscle, fascia and tendon at neck level, initial encounter (principal); W19.XXXA Unspecified fall, initial encounter
CPT/HCPCS: 70450; 72125; 99284; A9270

== ENCOUNTER → 2024-12-13 | Outpatient (CLI) | payer MEDICARE, MEDICAID, SELFPAY ==
--- NOTE | 2024-12-13 | XR_ITS ---
Examination: Abdomen AP single view Technique: AP portable supine abdomen, single view Exam date and time: December 13, 2024 at 1003 hours INDICATIONS: Incomplete colonoscopy 2 months ago, chronic constipation history FINDINGS: Moderate stool throughout the colon IMPRESSION: Moderate stool throughout the colon
== END | disposition home or self-care (01) ==
LOC: CDIM 09:38
PROVIDERS: PCP Internal Medicine; Referring Provider Specialist; Visit Provider Specialist
DX: K59.00 Constipation, unspecified (principal)
CPT/HCPCS: 74018

== ENCOUNTER 2025-01-06 13:54 | Outpatient (AMB) | payer MEDICARE, MEDICAID, SELFPAY ==
[2025-01-06 14:20] VITALS: BP 117/78; RESP 18; TEMP 36.4; O2SAT 94; BMI 34.4
--- NOTE | 2025-01-06 14:20 | PD.ORTHCLVIS ---
Vital signs 01/06/25 14:20 Height 1.63 m Height Method Stated Weight 91.342 kg Weight Measurement Method Standing Scale BMI 34.4 BP 117/78 Blood Pressure Source Automatic Cuff Blood Pressure Location Right Upper Arm Position Sitting Respiration 18 Pulse Source Monitor Temp 97.5 F Temp Source Temporal Artery Scan Pulse Oximetry (%) 94 L Oxygen Delivery Method Room Air Med/Allergies Allergies & Medications Allergies shellfish derived Allergy (Mild, Verified 01/06/25 14:21) Mouth,throat, swelling iodine Allergy (Unknown, Verified 01/06/25 14:21) Medication Reconciliation duloxetine 60 mg capsule,delayed release (Cymbalta) 60 mg PO BID 01/10/19 [History Confirmed 01/06/25] glipizide 2.5 mg tablet, extended release 24 hr 2.5 mg PO DAILY 05/18/21 [History Confirmed 01/06/25] lisinopril 2.5 mg tablet 2.5 mg PO QDAY 05/18/21 [History Confirmed 01/06/25] diclofenac potassium 50 mg tablet 50 mg PO QDAY 07/18/23 [History Confirmed 01/06/25] esomeprazole magnesium 40 mg capsule,delayed release 40 mg PO QDAY 07/18/23 [History Confirmed 01/06/25] tizanidine 2 mg capsule 4 mg PO Q8H PRN Pain 07/18/23 [History Confirmed 01/06/25] gabapentin 600 mg tablet 600 mg PO TID 07/29/24 [History Confirmed 01/06/25] lidocaine 4 % topical patch 1 patch topical QDAY PRN Pain 07/29/24 [History Confirmed 01/06/25] atorvastatin 20 mg tablet 20 mg PO QDAY 08/30/24 [History Confirmed 01/06/25] propranolol 10 mg tablet 10 mg PO QDAY 08/30/24 [History Confirmed 01/06/25] acetaminophen 300 mg-codeine 30 mg tablet 1 tab PO Q8H PRN pain #10 tabs 11/22/24 [Rx Confirmed 01/06/25] albuterol sulfate 90 mcg/actuation aerosol inhaler 1 puff inhalation QDAY PRN shortness of breath or wheezing 11/22/24 [History Confirmed 01/06/25] Exam Exam Patient is in no acute distress and is cooperative with the examination today. Breathing is nonlabored. Patient has a normal mood and affect. The patient has a gait that is antalgic Bilateral extremities were evaluated and demonstrates sensation intact to light touch. Palpable pedal pulses are present. No significant edema is present. Bilateral hips were examined. The patient has no pain with log roll of the hips. Internal rotation to 30 degrees and external rotation to 30 degrees is painless. Negative FADIR. Right knee was examined today. The right knee is in reasonable alignment. Range of motion from 0-120 degrees. Knee is stable to varus and valgus as well as AP translation with <5mm. Patient has a negative McMurrays. There is no pain with patellofemoral compression and no crepitus noted. The knee is nontender to palpation. Left knee was examined today. The left knee is in [neutral] alignment. Range of motion from [0-110] degrees. Knee is stable to varus and valgus as well as AP translation with <5mm. Patient has a [negative] McMurrays. There is [no] pain with patellofemoral compression and [no] crepitus noted. The knee is tender to palpation [diffusely]. We obtained new weightbearing x-rays. This demonstrates severe joint space narrowing worse on the left than the right. There is complete obliteration of the joint space. There is varus arthritis Assessment and Plan Problem List (1) Arthritis of both knees: Status: Acute Plan: 72-year-old female with severe left knee osteoarthritis worse on the left than the right. We discussed nonoperative and operative options. She has done really well with cortisone injections would like new ones today Recommend knee cortisone injections as patient would like to proceed with conservative treatment at this time. The risks and benefits of the procedure were reviewed with the patient and patient gave verbal consent to continue with the procedure. Procedure: performed by Dr. Cook Using sterile technique the Bilateral knees were thoroughly prepped with alcohol, and approximately 1 cc of Kenalog 40 mg/mL and 4 cc of 1% lidocaine was injected into each knee without resistance into the medial tibial femoral joint space. The patient tolerated the procedure. Advanced Care Planning Discussion Advance care planning discussed with:: patient Office Procedures GNS Level of Care Nursing/Assessment Patient Status: Established Patient Nursing Assessment/Reassesment: Medication Reconciliation, Update PMH in EMR and Vital Signs Coordination of Care: Complex Care and Chronic Disease 1-5, Education Complex Pt/Fam, Consent,records obtained, informed consent, Results/Orders obtained and Staff clarify orders Established Patient Charge Established Patient Point Assignment: 95 Established Patient Point Charge: EP Level 3 (80-115) Surgical Proc/IM SQ injection Major Surgical Procedure: Yes (BILATERAL KNEE INJECTION) Medication Given Medication Given Medication Given: Yes Documented Dose Given: 8 Route: Infiitration Medication Given Medication Given Medication Given: Yes Documented Dose Given: 4 Route: Infiitration Medication Given Medication Given Medication Given: Yes Documented Dose Given: 1 Route: Infiitration Medication Given Medication Given Medication Given: Yes Documented Dose Given: 1 Route: Infiitration Office Meds Xylocaine 10 mg/mL (1 %) injection solution Performing Provider: Eric Cook MD Performing Location: [facility] Administered by: Eric Cook MD on 01/06/25 14:33 Dose Route Admin Location Dispensed Lot Number Expiration Date [facility] [place] 2[place] [employer] Loader 40 mL Infiltration 40 mL [id number] 03/28/28 63025-616-36 [employer] Xylocaine 10 mg/mL (1 %) injection solution Performing Provider: Eric Cook MD Performing Location: [facility] Administered by: Eric Cook MD on 01/06/25 14:39 Dose Route Admin Location Dispensed Lot Number Expiration Date [facility] [place]NOTE 2] [employer] Loader 40 mL Infiltration 40 mL [id number] 05/28/26 triamcinolone acetonide 40 mg/mL suspension for injection Performing Provider: Eric Cook MD Performing Location: [facility] Administered by: Eric Cook MD on 01/06/25 14:33 Dose Route Admin Location Dispensed Lot Number Expiration Date [facility] [place]NOTE 2] [employer] Loader 80 mg intra-articular 2 mL [id number] 05/28/262318-2336-60 [employer] triamcinolone acetonide 40 mg/mL suspension for injection Performing Provider: Eric Cook MD Performing Location: [facility] Administered by: Eric Cook MD on 01/06/25 14:39 Dose Route Admin Location Dispensed Lot Number Expiration Date [facility] [place]NOTE 2] [employer] Loader 80 mg intra-articular 2 mL [id number] 05/28/266824-5844-11 [employer] MA Intake Visit Data Collection New Patient or Established: Established Patient (seen at [facility] within 3 years) Reason for Visit:: FU BILAT KNEE Seen by Clinical Staff ONLY (RN/MA): No 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: No PCP or OBGYN visit in last 3 months: Yes Hx Now: No Do You Feel Safe at Home: Yes Authorities Contacted: N/A Questionairres Past Medical History Past Medical History Have you ever been diagnosed with any of the following: Neurological Problems Cerebrovascular Accident (CVA): No Seizures: No Peripheral Neuropathy: Yes Cardiology Problems Hypercholesterolemia: Yes Congestive Heart Failure: No Edema: Yes Hypertension: Yes Hypotension: Yes Respiratory Problems Chronic Obstructive Pulmonary Disease (COPD): No Asthma: Yes Smoking: No Smoking Cessation Counseling: No Smoking Exposure: No Tobacco Use: No Stomache/Intestinal Problems Diverticulitis: Yes Diverticulosis: Yes Hiatal Hernia: Yes Hemorrhoids: Yes Gastroesophageal Reflux Disease: Yes Obesity: Yes Genital/Urinary Problems Renal Disease: No Kidney Stones: Yes Reproductive Problems Pelvic Inflammatory Disease: No Previous Pregnancies: Yes Musculoskeletal Problems Arthritis: Yes Head,Eye,Nose,Throat Problems Cataracts: Yes Endocrine Problems Diabetes Mellitus Type 1: No Diabetes Mellitus Type 2: Yes Blood Problems Anemia: Yes Clotting Problems: Yes Psychologic Problems Depression: Yes Other Problems Hospitalization: Yes Down Syndrome: No Developmental Delay: No Shingles: No Falls: Yes Blood Transfusions: Yes Blood Transfusion Reaction: No Anesthesia Reactions: No Organ Transplant: No Chicken Pox: Yes Measles: Yes Mumps: Yes Cancer: No Surgical History Hysterectomy: Yes Subjective Visit Visit for: follow up visit and knee (BILAT KNEE ) Immunization / Flu Flu Vaccine in the Last 12 Months: Yes Flu Vaccine Exclusion Criteria: Already Received History of Present Illness Chief complaint: Bilateral knee pain Elda is a pleasant 74-year-old female with bilateral knee pain and bilateral knee arthritis. She has done well with conservative treatment in the past. The injections have lasted for over 6 months and she would like new ones Today. Personal History Red flag PMH: none Pain Pain level (0-10): 5 Pain duration: + 3 YEARS Pain location: anterior Pain quality: sharp Pain timing: increases with activity (DURING THE DAY ) Associated signs & symptoms: weakness and stiffness Ambulatory data Ambulatory device: none Walking distance (minutes): 1 Treatments Number of previous injections: 3 Improvement with previous injections: Yes Number of Physical Therapy sessions: 0 Improvement with NSAIDS: n/a Review of Systems Review of Systems: All systems negative unless otherwise noted in HPI.
== END 2025-01-06 14:50 | disposition home or self-care (01) ==
LOC: HODSRG 13:54
PROVIDERS: PCP Internal Medicine; Referring Provider Internal Medicine; Supervising Provider Orthopaedic Surgery Adult Reconstructive Orthopaedic Surgery; Visit Provider Orthopaedic Surgery Adult Reconstructive Orthopaedic Surgery
DX: M17.0 Bilateral primary osteoarthritis of knee (principal); I10 Essential (primary) hypertension; E78.00 Pure hypercholesterolemia, unspecified
CPT/HCPCS: 20610; 99213; J3301; J3490; G0463

== ENCOUNTER 2025-04-07 14:45 | Outpatient (AMB) | payer MEDICARE, MEDICAID, SELFPAY ==
[2025-04-07 15:16] VITALS: BP 126/83; PULSE 79; RESP 19; TEMP 36.6; O2SAT 95; BMI 34.7
--- NOTE | 2025-04-07 15:16 | ORTHONT_ITS ---
Vital signs 04/07/25 15:16 Height 1.63 m Height Method Stated Weight 92.136 kg Weight Measurement Method Standing Scale BMI 34.7 BP 126/83 Blood Pressure Source Automatic Cuff Blood Pressure Location Right Upper Arm Position Sitting Respiration 19 Pulse 79 Pulse Source Monitor Temp 97.9 F Temp Source Temporal Artery Scan Pulse Oximetry (%) 95 Oxygen Delivery Method Room Air Med/Allergies Allergies & Medications Allergies shellfish derived Allergy (Mild, Verified 04/07/25 15:18) Mouth,throat, swelling iodine Allergy (Unknown, Verified 04/07/25 15:18) Medication Reconciliation duloxetine 60 mg capsule,delayed release (Cymbalta) 60 mg PO BID 01/10/19 [History Confirmed 04/07/25] glipizide 2.5 mg tablet, extended release 24 hr 2.5 mg PO DAILY 05/18/21 [History Confirmed 04/07/25] lisinopril 2.5 mg tablet 2.5 mg PO QDAY 05/18/21 [History Confirmed 04/07/25] diclofenac potassium 50 mg tablet 50 mg PO QDAY 07/18/23 [History Confirmed 04/07/25] esomeprazole magnesium 40 mg capsule,delayed release 40 mg PO QDAY 07/18/23 [History Confirmed 04/07/25] tizanidine 2 mg capsule 4 mg PO Q8H PRN Pain 07/18/23 [History Confirmed 04/07/25] gabapentin 600 mg tablet 600 mg PO TID 07/29/24 [History Confirmed 04/07/25] lidocaine 4 % topical patch 1 patch topical QDAY PRN Pain 07/29/24 [History Confirmed 04/07/25] atorvastatin 20 mg tablet 20 mg PO QDAY 08/30/24 [History Confirmed 04/07/25] propranolol 10 mg tablet 10 mg PO QDAY 08/30/24 [History Confirmed 04/07/25] acetaminophen 300 mg-codeine 30 mg tablet 1 tab PO Q8H PRN pain #10 tabs 11/22/24 [Rx Confirmed 04/07/25] albuterol sulfate 90 mcg/actuation aerosol inhaler 1 puff inhalation QDAY PRN shortness of breath or wheezing 11/22/24 [History Confirmed 04/07/25] Exam Exam Patient is in no acute distress and is cooperative with the examination today. Breathing is nonlabored. Patient has a normal mood and affect. The patient has a gait that is antalgic Bilateral extremities were evaluated and demonstrates sensation intact to light touch. Palpable pedal pulses are present. No significant edema is present. Bilateral hips were examined. The patient has no pain with log roll of the hips. Internal rotation to 30 degrees and external rotation to 30 degrees is painless. Negative FADIR. Right knee was examined today. The right knee is in reasonable alignment. Range of motion from 0-120 degrees. Knee is stable to varus and valgus as well as AP translation with <5mm. Patient has a negative McMurrays. There is no pain with patellofemoral compression and no crepitus noted. The knee is nontender to palpation. Left knee was examined today. The left knee is in [neutral] alignment. Range of motion from [0-110] degrees. Knee is stable to varus and valgus as well as AP translation with <5mm. Patient has a [negative] McMurrays. There is [no] pain with patellofemoral compression and [no] crepitus noted. The knee is tender to palpation [diffusely]. We obtained new weightbearing x-rays. This demonstrates severe joint space narrowing worse on the left than the right. There is complete obliteration of the joint space. There is varus arthritis Assessment and Plan Problem List (1) Arthritis of both knees: Status: Acute Plan: 72-year-old female with severe left knee osteoarthritis worse on the left than the right. We discussed nonoperative and operative options. For the right knee, as she has good relief with the last injections. She would like to get new injection on the right knee. For the left knee, she is failed conservative treatment occluding over 5 injections. We will proceed with a left total knee replacement. Recommend knee cortisone injection as patient would like to proceed with conservative treatment at this time. The risks and benefits of the procedure were reviewed with the patient and patient gave verbal consent to continue with the procedure. Procedure: performed by Dr. Cook Using sterile technique the Right knee was thoroughly prepped with alcohol, and approximately 1 cc of Kenalog 40 mg/mL and 4 cc of 1% lidocaine was injected without resistance into the medial tibial femoral joint space. The patient tolerated the procedure. The nature and purpose of the total knee replacement, alternative method(s) of treatment, the material risks involved, and the possibility of complications were fully explained to the patient. The patient does NOT have any of the following contraindications to TKA: - Active infection of the knee joint, OR - Active systemic bacteremia, OR - Active skin infection or open wound at surgical site, OR - Neuropathic arthritis, OR - Severe, rapidly progressive neurological disease, OR - Severe medical condition that makes risks of surgery outweigh the potential benefit The patient was told the most common risks and complications associated with a total knee replacement include, but are not limited to: blood clots in the leg, fatal pulmonary embolism, dislocation of the prosthesis, intraoperative and postoperative fractures of the femur or tibia, infection, failure of the prosthesis or grafting materials, complications from anesthesia, reactions to blood transfusions, postoperative leg length inequality, instability of the knee replacement, nerve damage or injury, vascular injury, delayed wound healing, infection, other injury or even . In addition, there are risks associated with anesthesia given during this operation. Also, the patient was told that after undergoing a total knee replacement there may still be persistent pain or disability. The patient was informed that the success of this operation in part depends upon the mechanical devices which are going to be implanted and that these devices can fail or malfunction, and may need to be repaired or replaced and there are no guarantees as to the longevity of this device or its parts and that it or its parts could fail prematurely. The patient was also notified that during the course of surgery, there may be a need to use bone graft from donors, and that any bone graft used will be carefully screened for communicable diseases, including AIDS, hepatitis, Ayaan-Creutzfeldt, or other diseases, but despite the screening procedures, there is a small chance that they could contract one of these diseases. Finally, the patient was asked to follow completely and fully with all advice and recommended treatments, and that recovery and ultimate outcome are affected by their compliance with recommended treatment. We discussed the risks, benefits and treatment alternatives, and the patient is interested in proceeding with surgery. We will try to set this up as expeditiously as possible. Advanced Care Planning Discussion Advance care planning discussed with:: patient Office Procedures GNS Level of Care Nursing/Assessment Patient Status: Established Patient Nursing Assessment/Reassesment: Medication Reconciliation, Update PMH in EMR and Vital Signs Coordination of Care: Complex Care and Chronic Disease 1-5, Education Complex Pt/Fam, Consent,records obtained, informed consent, Lab and Imaging orders, Results/Orders obtained and Staff clarify orders Established Patient Charge Established Patient Point Assignment: 110 Established Patient Point Charge: Level 3 (80-115) Medication Given Medication Given Medication Given: Yes Documented Dose Given: 1 Route: Infiitration Medication Given Medication Given Medication Given: Yes Documented Dose Given: 1 Route: Infiitration Office Meds Xylocaine 10 mg/mL (1 %) injection solution Performing Provider: Eric Cook MD Performing Location: [facility] Administered by: Eric Cook MD on 04/07/25 15:30 Dose Route Admin Location Dispensed Lot Number Expiration Date [facility] Rn Child 20 mL Infiltration knee 20 mL [id number] 01/27/28 81792-105-47 [facility] triamcinolone acetonide 40 mg/mL suspension for injection Performing Provider: Eric Cook MD Performing Location: [facility] Administered by: Eric Cook MD on 04/07/25 15:30 Dose Route Admin Location Dispensed Lot Number Expiration Date [facility] Rn Child 40 mg intra-articular KNEE 1 mL [id number] 10/29/26 12564-144-95 MELVIN DARBY MA Intake Visit Data Collection New Patient or Established: Established Patient (seen at [facility] within 3 years) Reason for Visit:: 3 month knee injection Seen by Clinical Staff ONLY (RN/MA): No Verbal consent obtained for Telemed visit?: No Deputy Head Required: No PCP or OBGYN visit in last 3 months: Yes Hx Now: No Do You Feel Safe at Home: Yes Authorities Contacted: N/A Questionairres Past Medical History Past Medical History Have you ever been diagnosed with any of the following: Neurological Problems Cerebrovascular Accident (CVA): No Seizures: No Peripheral Neuropathy: Yes Cardiology Problems Hypercholesterolemia: Yes Congestive Heart Failure: No Edema: Yes Hypertension: Yes Hypotension: Yes Respiratory Problems Chronic Obstructive Pulmonary Disease (COPD): No Asthma: Yes Smoking: No Smoking Cessation Counseling: No Smoking Exposure: No Tobacco Use: No Stomache/Intestinal Problems Diverticulitis: Yes Diverticulosis: Yes Hiatal Hernia: Yes Hemorrhoids: Yes Gastroesophageal Reflux Disease: Yes Obesity: Yes Genital/Urinary Problems Renal Disease: No Kidney Stones: Yes Reproductive Problems Pelvic Inflammatory Disease: No Previous Pregnancies: Yes Musculoskeletal Problems Arthritis: Yes Head,Eye,Nose,Throat Problems Cataracts: Yes Endocrine Problems Diabetes Mellitus Type 1: No Diabetes Mellitus Type 2: Yes Blood Problems Anemia: Yes Clotting Problems: Yes Psychologic Problems Depression: Yes Other Problems Hospitalization: Yes Down Syndrome: No Developmental Delay: No Shingles: No Falls: Yes Blood Transfusions: Yes Blood Transfusion Reaction: No Anesthesia Reactions: No Organ Transplant: No Chicken Pox: Yes Measles: Yes Mumps: Yes Cancer: No Surgical History Hysterectomy: Yes Subjective Visit Visit for: follow up visit, knee and injections Immunization / Flu Flu Vaccine in the Last 12 Months: No Flu Vaccine Exclusion Criteria: No Exclusion Criteria History of Present Illness Chief complaint: 3 month knee injection Elda is a pleasant 74-year-old female with bilateral knee pain and bilateral knee arthritis. She has done well with conservative treatment in the past. We have been treating her conservatively with injections in the past which she has had over 5. She is also tried anti-inflammatories. The last injection in the left knee did not last for more than 3 weeks. The right knee injection did work for quite a while. She would like repeat injections on the right knee. For the left knee she would like to proceed with surgery as the pain is affecting her quality life and happiness Personal History Occupation: DISABLED Red flag PMH: BMI BMI Counceling provided: Yes Pain Pain level (0-10): 5 Pain duration: COMES AND GOES Pain location: anterior Pain quality: aching Pain timing: night and increases with activity Associated signs & symptoms: none Ambulatory data Ambulatory device: none Walking distance (minutes): 1 Treatments Number of previous injections: 3 Improvement with previous injections: No Number of Physical Therapy sessions: 0 Improvement with PT: No Improvement with NSAIDS: no Review of Systems Review of Systems: All systems negative unless otherwise noted in HPI.
--- NOTE | 2025-04-07 15:38 | XR_ITS ---
Examination: Bilateral knees 2 views Right lateral knee left lateral knee 2 views Bilateral axial knees single view TECHNIQUE: Bilateral AP knees standing single view, bilateral PA knees standing single view flexion Standing right lateral knee left lateral knee 2 views Bilateral axial knees single view total 5 views Date and time: April 07, 2025 at 1544 hours INDICATIONS: Knee pain months FINDINGS: Significant osteopenia Moderate to advanced narrowing medial joint space right knee Moderate osteoarthritis right patellofemoral joint No fracture Advanced narrowing, akcp-vo-huck, medial joint space left knee Moderate to advanced osteoarthritis left patellofemoral joint No fracture IMPRESSION: Bilateral osteoarthritis as above, including severe narrowing [id number] medial joint space left knee
== END 2025-04-07 15:53 | disposition home or self-care (01) ==
LOC: HODSRG 14:45
PROVIDERS: PCP Internal Medicine; Referring Provider Internal Medicine; Supervising Provider Orthopaedic Surgery Adult Reconstructive Orthopaedic Surgery; Visit Provider Orthopaedic Surgery Adult Reconstructive Orthopaedic Surgery
DX: M17.0 Bilateral primary osteoarthritis of knee (principal); I10 Essential (primary) hypertension; E78.00 Pure hypercholesterolemia, unspecified; K21.9 Gastro-esophageal reflux disease without esophagitis; E11.9 Type 2 diabetes mellitus without complications; M25.562 Pain in left knee; M25.561 Pain in right knee
CPT/HCPCS: 20610; 73564; 99213; J3301; J3490; G0463

== ENCOUNTER → 2025-04-13 | Outpatient (CLI) | payer MEDICARE, MEDICAID, SELFPAY ==
[2025-04-13 14:13] LABS: Basophils # (Auto) 0.0 Thou/mm3 (0.0-0.2); Basophils % (Auto) 0 % (0-2.5); Eosinophils # (Auto) 0.2 Thou/mm3 (0.0-0.5); Eosinophils % (Auto) 3 % (0-10); Hematocrit 44.0 % (36.0-46.0); Hemoglobin 14.8 g/dL (12.0-16.0); Immature Granulocytes Auto 0.06 Thou/mm3 (0.00-0.00); Lymphocytes # (Auto) 2.5 Thou/mm3 (1.0-4.8); Lymphocytes % (Auto) 28 % (10-50); Mean Corpuscular HGB Conc 33.6 g/dl (31.0-37.0); Mean Corpuscular Hemoglobin 30.7 pg (25.0-35.0); Mean Corpuscular Volume 91 fL (80-100); Monocytes # (Auto) 0.8 Thou/mm3 (0.0-0.8); Monocytes % (Auto) 9 % (0-12); Neutrophils # (Auto) 5.3 Thou/mm3 (1.8-7.7); Neutrophils % (Auto) 59 % (37-80); Nucleated Red Blood Cell # 0.00 Thou/mm3 (0.00-0.00); Nucleated Red Blood Cell % 0 /100 WBC (0); Platelet Count 301 Thou/mm3 (140-440); RDW Standard Deviation 42.9 fL (36.4-46.3); Red Blood Count 4.82 Miln/mm3 (4.00-5.20); White Blood Count 9.0 Thou/mm3 (3.6-11.0)
[2025-04-13 14:21] LABS: Glucose Estimated Average 157 mg/dL (80-131); Hemoglobin A1C 7.1 % Hgb (4.8-6.0)
[2025-04-13 14:22] LABS: INR 0.9 (0.9-1.3); Partial Thromboplastin Time 24.9 Seconds (22.0-36.0); Prothrombin Time 10.3 Seconds (9.0-12.2)
[2025-04-13 14:24] LABS: Collection Type, Urine Clean Catch
[2025-04-13 14:37] LABS: Alanine Aminotransferase 22 U/L (10-49); Albumin, Serum 4.2 gm/dL (3.4-4.8); Albumin/Globulin Ratio 1.7 (1.2-2.2); Alkaline Phosphatase 124 U/L (46-116); Anion Gap 9 (7-16); Aspartate Amino Transferase 20 U/L (0-34); BUN/Creatinine Ratio 20 Ratio (12-20); Bilirubin,Total 0.8 mg/dL (0.3-1.2); Blood Urea Nitrogen 14 mg/dL (9-23); Calcium 9.6 mg/dL (8.3-10.6); Calcium (Corrected) 9.6 mg/dL (8.5-10.1); Carbon Dioxide 27.6 mMol/L (20.0-31.0); Cardiac Risk Estimate 1.9 RATIO (3.7-5.6); Chloride 104 mMol/L (98-107); Cholesterol 120 mg/dL (132-200); Creatinine (Component) 0.7 mg/dL (0.6-1.3); Globulin 2.5 gm/dL (2.3-3.5); Glucose 164 mg/dL (74-106); HDL Cholesterol 63 mg/dL (40-60); LDL Cholesterol,Calculated 31 mg/dL (0-130); Osmolality,Calculated 285 (275-295); Potassium 4.3 mMol/L (3.4-5.1); Sodium 141 mMol/L (136-145); Thyroid Stimulating Hormone 2.14 uIU/mL (0.55-4.78); Total Protein 6.7 gm/dL (5.7-8.2); Triglycerides 132 mg/dL (30-150); eGFR > 60 See Note
[2025-04-13 14:46] LABS: Bacteria,Urine Rare; Bilirubin,Urine Negative (Negative); Blood,Urine Negative (Negative); Clarity,Urine Clear (Clear/Hazy); Color,Urine Lt-Yellow (Lt Yel-Yel); Glucose, Urine Negative (Negative); Ketones,Urine Negative (Negative); Leukocyte Esterase,Urine Negative (Negative); Nitrite,Urine Negative (Negative); PH,Urine 8.0 (5.0-7.0); Protein,Urine Negative (Neg - Trace); RBC,Urine 1 /hpf (0-3); Specific Gravity,Urine 1.021 (1.001-1.035); Squamous Epithelial Cell,Urine 4 /hpf (0-5); Urobilinogen,Urine Negative mg/dL (0.0-1.0); WBC,Urine 1 /hpf (0-5)
[2025-04-13 14:49] LABS: Creatinine MALB Rnd Ur 65 mg/dL (30-125); Microalbumin, Random Urine < 3 mg/L (0-300)
== END | disposition home or self-care (01) ==
LOC: COPL 11:51
PROVIDERS: PCP Internal Medicine; Referring Provider Internal Medicine; Visit Provider Internal Medicine
DX: E11.9 Type 2 diabetes mellitus without complications (principal); I10 Essential (primary) hypertension; E78.5 Hyperlipidemia, unspecified; N17.9 Acute kidney failure, unspecified
CPT/HCPCS: 36415; 80053; 80061; 81001; 82043; 82570; 83036; 84443; 85025; 85610; 85730

== ENCOUNTER → 2025-06-03 | Outpatient (CLI) | payer MEDICARE, MEDICAID, SELFPAY ==
--- NOTE | 2025-06-03 11:30 | XR_ITS ---
Examination: CT left lower extremity, without contrast. 2-D sagittal reconstructions. 2-D coronal reconstructions. 3-D reconstructions. Date and time of exam:June 03, 2025, 1118 hours INDICATIONS: Diagnosis left knee unilateral osteoarthritis, knee pain years CTDI: vol (mGy):27.59 DLP: (mGycm):1053 Technique: Multiple 1.25 mm axial sections of the left lower extremity without intravenous contrast have been obtained. 2-D sagittal and coronal reconstructions have been obtained. 3-D reconstructions have been obtained. Low dose protocols were performed. One or more of the following dose reduction techniques were used; automated exposure control, adjustment of the mA and/or KV according to patient size, use of iterative reconstruction technique. Findings: Significant osteopenia. Moderate to advanced left hip osteoarthritis Advanced left knee tricompartment osteoarthritis Severe narrowing medial joint space left knee No fracture No patellar dislocation IMPRESSION: Advanced left knee tricompartment osteoarthritis
== END | disposition home or self-care (01) ==
LOC: CCTX 11:09
PROVIDERS: PCP Internal Medicine; Referring Provider Orthopaedic Surgery Adult Reconstructive Orthopaedic Surgery; Visit Provider Orthopaedic Surgery Adult Reconstructive Orthopaedic Surgery
DX: M17.12 Unilateral primary osteoarthritis, left knee (principal)
CPT/HCPCS: 73700

== ENCOUNTER 2025-06-09 09:08 | Outpatient (AMB) | payer MEDICARE, MEDICAID, SELFPAY ==
--- NOTE | 2025-06-09 09:31 | ORTHONT_ITS ---
Vital signs 06/09/25 09:32 Height 1.63 m Height Method Stated Weight 91.767 kg Weight Measurement Method Standing Scale BMI 34.5 BP 123/84 Blood Pressure Source Automatic Cuff Blood Pressure Location Right Upper Arm Position Sitting Respiration 18 Pulse 16 L Pulse Source Monitor Temp 97.7 F Temp Source Temporal Artery Scan Pulse Oximetry (%) 94 L Oxygen Delivery Method Room Air Med/Allergies Allergies & Medications Allergies shellfish derived Allergy (Mild, Verified 04/07/25 15:18) Mouth,throat, swelling iodine Allergy (Unknown, Verified 04/07/25 15:18) Exam Exam Patient is in no acute distress and is cooperative with the examination today. Breathing is nonlabored. Patient has a normal mood and affect. The patient has a gait that is antalgic Bilateral extremities were evaluated and demonstrates sensation intact to light touch. Palpable pedal pulses are present. No significant edema is present. Bilateral hips were examined. The patient has no pain with log roll of the hips. Internal rotation to 30 degrees and external rotation to 30 degrees is painless. Negative FADIR. Right knee was examined today. The right knee is in reasonable alignment. Range of motion from 0-120 degrees. Knee is stable to varus and valgus as well as AP translation with <5mm. Patient has a negative McMurrays. There is no pain with patellofemoral compression and no crepitus noted. The knee is nontender to palpation. Left knee was examined today. The left knee is in [neutral] alignment. Range of motion from [0-110] degrees. Knee is stable to varus and valgus as well as AP translation with <5mm. Patient has a [negative] McMurrays. There is [no] pain with patellofemoral compression and [no] crepitus noted. The knee is tender to palpation [diffusely]. We obtained new weightbearing x-rays. This demonstrates severe joint space narrowing worse on the left than the right. There is complete obliteration of the joint space. There is varus arthritis Assessment and Plan Problem List (1) Arthritis of both knees: Status: Acute Plan: 72-year-old female with severe left knee osteoarthritis worse on the left than the right. We discussed nonoperative and operative options. For the right knee, as she has good relief with the last injections. She would like to get new injection on the right knee. For the left knee, she is failed conservative treatment occluding over 5 injections. We will proceed with a left total knee replacement. The nature and purpose of the total knee replacement, alternative method(s) of treatment, the material risks involved, and the possibility of complications were fully explained to the patient. The patient does NOT have any of the following contraindications to TKA: - Active infection of the knee joint, OR - Active systemic bacteremia, OR - Active skin infection or open wound at surgical site, OR - Neuropathic arthritis, OR - Severe, rapidly progressive neurological disease, OR - Severe medical condition that makes risks of surgery outweigh the potential benefit The patient was told the most common risks and complications associated with a total knee replacement include, but are not limited to: blood clots in the leg, fatal pulmonary embolism, dislocation of the prosthesis, intraoperative and postoperative fractures of the femur or tibia, infection, failure of the prosthesis or grafting materials, complications from anesthesia, reactions to blood transfusions, postoperative leg length inequality, instability of the knee replacement, nerve damage or injury, vascular injury, delayed wound healing, infection, other injury or even . In addition, there are risks associated with anesthesia given during this operation. Also, the patient was told that after undergoing a total knee replacement there may still be persistent pain or disability. The patient was informed that the success of this operation in part depends upon the mechanical devices which are going to be implanted and that these devices can fail or malfunction, and may need to be repaired or replaced and there are no guarantees as to the longevity of this device or its parts and that it or its parts could fail prematurely. The patient was also notified that during the course of surgery, there may be a need to use bone graft from donors, and that any bone graft used will be carefully screened for communicable diseases, including AIDS, hepatitis, Ayaan-Creutzfeldt, or other diseases, but despite the screening procedures, there is a small chance that they could contract one of these diseases. Finally, the patient was asked to follow completely and fully with all advice and recommended treatments, and that recovery and ultimate outcome are affected by their compliance with recommended treatment. We discussed the risks, benefits and treatment alternatives, and the patient is interested in proceeding with surgery. We will try to set this up as expeditiously as possible. Advanced Care Planning Discussion Advance care planning discussed with:: patient Office Procedures GNS Level of Care Nursing/Assessment Patient Status: Established Patient Nursing Assessment/Reassesment: Medication Reconciliation, Update PMH in EMR and Vital Signs Coordination of Care: Complex Care and Chronic Disease 1-5, Education Complex Pt/Fam, Consent,records obtained, informed consent, 2-3 Insurance Autorizations needed, Results/Orders obtained and Staff clarify orders Established Patient Charge Established Patient Point Assignment: 115 Established Patient Point Charge: EP Level 3 (80-115) MA Intake Visit Data Collection New Patient or Established: Established Patient (seen at [facility] within 3 years) Reason for Visit:: 3 month knee injection Seen by Clinical Staff ONLY (RN/MA): No Verbal consent obtained for Telemed visit?: No Crew Dispatcher Required: No PCP or OBGYN visit in last 3 months: Yes Hx Now: No Do You Feel Safe at Home: Yes Authorities Contacted: N/A Questionairres Past Medical History Past Medical History Have you ever been diagnosed with any of the following: Neurological Problems Cerebrovascular Accident (CVA): No Seizures: No Peripheral Neuropathy: Yes Cardiology Problems Hypercholesterolemia: Yes Congestive Heart Failure: No Edema: Yes Hypertension: Yes Hypotension: Yes Respiratory Problems Chronic Obstructive Pulmonary Disease (COPD): No Asthma: Yes Smoking: No Smoking Cessation Counseling: No Smoking Exposure: No Tobacco Use: No Stomache/Intestinal Problems Diverticulitis: Yes Diverticulosis: Yes Hiatal Hernia: Yes Hemorrhoids: Yes Gastroesophageal Reflux Disease: Yes Obesity: Yes Genital/Urinary Problems Renal Disease: No Kidney Stones: Yes Reproductive Problems Pelvic Inflammatory Disease: No Previous Pregnancies: Yes Musculoskeletal Problems Arthritis: Yes Head,Eye,Nose,Throat Problems Cataracts: Yes Endocrine Problems Diabetes Mellitus Type 1: No Diabetes Mellitus Type 2: Yes Blood Problems Anemia: Yes Clotting Problems: Yes Psychologic Problems Depression: Yes Other Problems Hospitalization: Yes Down Syndrome: No Developmental Delay: No Shingles: No Falls: Yes Blood Transfusions: Yes Blood Transfusion Reaction: No Anesthesia Reactions: No Organ Transplant: No Chicken Pox: Yes Measles: Yes Mumps: Yes Cancer: No Surgical History Hysterectomy: Yes Subjective Visit Visit for: follow up visit Immunization / Flu Flu Vaccine in the Last 12 Months: No Flu Vaccine Exclusion Criteria: Already Received History of Present Illness Chief complaint: PRE-OP LEFT TKA Elda is a pleasant 74-year-old female with bilateral knee pain and bilateral knee arthritis. She has done well with conservative treatment in the past. We have been treating her conservatively with injections in the past which she has had over 5. She is also tried anti-inflammatories. The last injection in the left knee did not last for more than 3 weeks. The right knee injection did work for quite a while. She would like repeat injections on the right knee. For the left knee she would like to proceed with surgery as the pain is affecting her quality life and happiness Personal History Occupation: RETIRED Red flag PMH: BMI BMI Counceling provided: Yes Pain Pain level (0-10): 4 Pain duration: CONSTANT Pain location: inside (medial), outside (lateral), anterior and posterior Pain quality: sharp, dull and aching Pain timing: night and increases with activity Associated signs & symptoms: none Ambulatory data Ambulatory device: none Walking distance (minutes): 1 Treatments Number of previous injections: 2 Improvement with previous injections: No Number of Physical Therapy sessions: 0 Improvement with PT: No Improvement with NSAIDS: no Review of Systems Review of Systems: All systems negative unless otherwise noted in HPI.
[2025-06-09 09:32] VITALS: BP 123/84; PULSE 16; RESP 18; TEMP 36.5; O2SAT 94; BMI 34.5
== END 2025-06-09 09:52 | disposition home or self-care (01) ==
LOC: HODSRG 09:08
PROVIDERS: PCP Internal Medicine; Referring Provider Internal Medicine; Supervising Provider Orthopaedic Surgery Adult Reconstructive Orthopaedic Surgery; Visit Provider Orthopaedic Surgery Adult Reconstructive Orthopaedic Surgery
DX: M17.0 Bilateral primary osteoarthritis of knee (principal); M25.562 Pain in left knee; M25.561 Pain in right knee; I10 Essential (primary) hypertension; E78.00 Pure hypercholesterolemia, unspecified; K21.9 Gastro-esophageal reflux disease without esophagitis; E11.9 Type 2 diabetes mellitus without complications; E66.9 Obesity, unspecified; Z71.3 Dietary counseling and surveillance; Z68.34 Body mass index [BMI] 34.0-34.9, adult
CPT/HCPCS: 99213; G0463

== ENCOUNTER 2025-06-13 05:35 | Day surgery (SDC) | payer MEDICARE, MEDICAID, SELFPAY ==
--- NOTE | 2025-06-09 12:30 | EKG_ITS ---
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
[2025-06-09 13:26] VITALS: BMI 34.7
[2025-06-09 14:11] LABS: Basophils # (Auto) 0.0 Thou/mm3 (0.0-0.2); Basophils % (Auto) 1 % (0-2.5); Eosinophils # (Auto) 0.2 Thou/mm3 (0.0-0.5); Eosinophils % (Auto) 2 % (0-10); Hematocrit 43.6 % (36.0-46.0); Hemoglobin 14.3 g/dL (12.0-16.0); Immature Granulocytes Auto 0.03 Thou/mm3 (0.00-0.00); Lymphocytes # (Auto) 2.7 Thou/mm3 (1.0-4.8); Lymphocytes % (Auto) 37 % (10-50); Mean Corpuscular HGB Conc 32.8 g/dl (31.0-37.0); Mean Corpuscular Hemoglobin 30.6 pg (25.0-35.0); Mean Corpuscular Volume 93 fL (80-100); Monocytes # (Auto) 0.7 Thou/mm3 (0.0-0.8); Monocytes % (Auto) 10 % (0-12); Neutrophils # (Auto) 3.6 Thou/mm3 (1.8-7.7); Neutrophils % (Auto) 50 % (37-80); Nucleated Red Blood Cell # 0.00 Thou/mm3 (0.00-0.00); Nucleated Red Blood Cell % 0 /100 WBC (0); Platelet Count 272 Thou/mm3 (140-440); RDW Standard Deviation 44.2 fL (36.4-46.3); Red Blood Count 4.67 Miln/mm3 (4.00-5.20); White Blood Count 7.2 Thou/mm3 (3.6-11.0)
[2025-06-09 14:25] LABS: INR 1.0 (0.9-1.3); Partial Thromboplastin Time 23.7 Seconds (22.0-36.0); Prothrombin Time 10.8 Seconds (9.0-12.2)
[2025-06-09 14:29] LABS: Alanine Aminotransferase 19 U/L (10-49); Albumin, Serum 4.2 gm/dL (3.4-4.8); Albumin/Globulin Ratio 1.9 (1.2-2.2); Alkaline Phosphatase 130 U/L (46-116); Anion Gap 9 (7-16); Aspartate Amino Transferase 20 U/L (0-34); BUN/Creatinine Ratio 19 Ratio (12-20); Bilirubin,Total 0.6 mg/dL (0.3-1.2); Blood Urea Nitrogen 13 mg/dL (9-23); Calcium 10.1 mg/dL (8.3-10.6); Calcium (Corrected) 10.1 mg/dL (8.5-10.1); Carbon Dioxide 27.0 mMol/L (20.0-31.0); Chloride 105 mMol/L (98-107); Creatinine (Component) 0.7 mg/dL (0.6-1.3); Estimated Creatinine Clearance 78.5 mL/min (>60); Globulin 2.2 gm/dL (2.3-3.5); Glucose 151 mg/dL (74-106); Osmolality,Calculated 284 (275-295); Potassium 4.2 mMol/L (3.4-5.1); Sodium 141 mMol/L (136-145); Total Protein 6.4 gm/dL (5.7-8.2); eGFR > 60 See Note
[2025-06-13] VITALS (15 sets, daily range): BP systolic 101–147; BP diastolic 59–92; PULSE 83–102; RESP 13–20; TEMP 36.3–36.7; O2SAT 91–96; BMI 34.1
[2025-06-13] MEDS: PREGABALIN 75 MG CAPSULE PO (06:45)
[2025-06-13] MEDS: ACETAMINOPHEN 325 MG TABLET 650 MG PO (06:45)
[2025-06-13] MEDS: MELOXICAM 7.5 MG TABLET PO (06:45)
--- NOTE | 2025-06-13 08:57 | XR_ITS ---
Examination: Left knee 2 views TECHNIQUE: AP lateral left knee 2 views Date and time: June 11, 2025 0953 hours INDICATIONS: Postop knee replacement today. FINDINGS: Significant osteopenia. Total left knee arthroplasty. Satisfactory alignment. No fracture IMPRESSION: Total left knee arthroplasty with satisfactory alignment
--- NOTE | 2025-06-13 09:01 | PD.SUROPNT ---
Date of Procedure 06/13/25 Pre Op Diagnosis left knee osteoarthritis Post Op Diagnosis left knee osteoarthritis Procedure left total knee replacement compa Findings full thickness cartilage loss and osteophytes Procedure Description Indication: The patient is a 74 year old who has a long history of left knee pain. X-rays show degenerative arthritis involving the knee. Over the past several years the patient has had increasing pain, progressive limitation in function. He has failed conservative measures including activity modification, physical therapy, injections, anti-inflammatories, and assistive devices. After a lengthy discussion of the risks and benefits, the patient presents now for total knee replacement. The nature and purpose of the total knee replacement, alternative method(s) of treatment, the material risks involved, and the possibility of complications were fully explained to the patient. The patient was told the most common risks and complications associated with a total knee replacement include, but are not limited to blood clots in the leg, fatal pulmonary embolism, dislocation of the prosthesis, intraoperative and postoperative fractures of the femur or tibia, infection, failure of the prosthesis or grafting materials, complications from anesthesia, reactions to blood transfusions, postoperative leg length inequality, instability of the knee replacement, nerve damage or injury, vascular injury, delayed wound healing, infections, other injury or even . In addition, there are risks associated with anesthesia given during this operation, temporary or permanent numbness on the skin lateral to the incision can be a complication unique to total knee surgery, and kneeling can be painful after knee replacement surgery. Also, the patient was told that after undergoing a total knee replacement there may still be pain or disability. We discussed with the patient that we will be using a robot-assisted technology. We discussed that there is a possibility of converting to manual instrumentation. The patient was informed that the success of this operation in part depends upon the mechanical devices which are going to be implanted and that these devices can fail or malfunction, and may need to be repaired or replaced and there are no guarantees as to the longevity of this device or its part and that it or its parts could fail prematurely. Finally, the patient was asked to follow completely and fully with all advice and recommended treatments, and that recovery and ultimate outcome are affected by their compliance with recommended treatment. Surgical technique: Patient was marked and consented in the pre-operative area. The patient was brought to the operating room and placed on the operating table in a supine position. Prior to positioning, a timeout procedure was performed between the surgeon, the anesthesiologist, and the nursing staff where the patient and the operative side were identified and confirmed. After adequate general anesthetic was obtained, the left lower extremity was prepped and draped in the usual sterile fashion. A weight based dose of Cefazolin were administered within 1 hour prior to incision. The robot was preregistered and calirated before the incision. The extremity was exsanguinated with an esmarch badge and tourniquet inflated to 250mmHg. A midline incision was made. A median parapatellar arthrotomy was made. The patella was subluxed laterally. A medial release was performed to expose the medial tibia. His femoral and tibial pins were placed through an intra incisional manner for both cases. Every effort was made to ensure that the distalmost aspect of the pin was hung in the second cortex. The arrays were then tightened several times to ensure that it was fixed for the remainder of the case. Both femoral and tibial checkpoints were then placed. We then went through the registration process of the bone. We then assessed the knee deformity and attempted to correct it. We also used the robot to aid in judging laxity in both extension and flexion. Final based on laxity and alignment we changed the preoperative assessment to obtain proper proper implant positioning and to correct deformity. Attention was then placed to the tibia. We made a tibial cut using the robot ensuring that both the MCL and the patella tendon were protected with retractors. We then went to the femur and made the posterior cut followed by the anterior cut and the anterior chamfer. The bone was then removed and we made a distal femur cut and a posterior chamfer cut. We verified all cuts. A trial reduction was performed with a size 3 femoral component and a size 2 keeled tibial component. TThe patella tracked centrally, and no lateral retinacular release was necessary. The trial implants were removed. The arrays, pins, and checkpoints were all removed. We performed a verification that all pins were removed. The cut bone surfaces were lavaged. A size 3 left femoral component, a size 2 keeled tibial component were impacted into position. The knee was felt to be well balanced in the sagittal and coronal plane. The final 2x11mm cruciate-substituting articular insert was impacted into the tibial tray. The knee was brought out to full extension, flexed up to 120 degrees. It was stable to varus and valgus stress and appropriately balanced in flexion and extension. The wounds were copiously irrigated following deflation of tourniquet. The medial retinaculum was reapproximated with #1 vicryl and quill. The subcutaneous tissues were closed with 0 and 2-0 interrupted Vicryl. The skin was closed with 3-0 Monofilament V loc suture. A sterile dressing was applied. The patient was transferred to a bed and brought to recovery in stable condition. The patient tolerated the procedure well. There were no intraoperative complications. Sponge and needle counts were correct times 2. As the attending surgeon, Daljit arias I was present and performed the entire operation. Grafts/Implants Size 3 CR Femur Size 2 Tibia 11mm poly CS Implants sameera Pathology / specimen None Pathology comment: none Estimated Blood Loss 150 Condition Stable Disposition same day Surgeon Eric Cook MD Surgical Staff Operation Date: 06/13/25 07:30 Case Staff STATOR CONNECTOR: Abhay Saldana RNtool radial drill press set up operator: Brittanie Santiago
--- NOTE | 2025-06-13 09:40 | SUR.PHASEI ---
0940: Pt. AAOx4, vitals stable, breathing unlabored, no complaint of pain or nausea, dressing to left knee CDI, no active bleed noted, pt. able to move bilateral legs, cap refill to bilateral feet less than 3 seconds, bilateral dorsalis pedis pulses strong and regular, report received from Tima BOCANEGRA and Juana ALONSO.
[2025-06-13] MEDS: fentaNYL CIT INJ 50 mCg/ML AMP 2ML IVP ×2 (09:52→10:58)
--- NOTE | 2025-06-13 11:32 | XR_ITS ---
Examination: AP knees single view Technique : AP left knee single view Date and time: 06/13/2025 1131 hours INDICATIONS: Postop knee replacement FINDINGS: Total left knee arthroplasty. Satisfactory alignment. No fracture. IMPRESSION: Total left knee arthroplasty with satisfactory alignment
--- NOTE | 2025-06-13 11:45 | SUR.PHASEII ---
pt awake, alert, able to follow commands, breathing unlabored, VS stable, dressing to left lower extremity clean, dry, and intact, report from Latasha ALONSO
--- NOTE | 2025-06-13 11:58 | SUR.PHASEII ---
[facility] Physical Therapist at bedside, pt disconnected from monitors
--- NOTE | 2025-06-13 12:19 | SUR.PHASEII ---
1219: Received report from Magy Washington RN. Pt. AAOx4, vitals stable, breathing unlabored, pt. just finished physical therapy.
--- NOTE | 2025-06-13 12:19 | SUR.PHASEII ---
Report to Latasha ALONSO
--- NOTE | 2025-06-13 13:10 | SUR.PHASEII ---
1310: Pt. AAOx4, vitals stable, breathing unlabored, no complaint of pain or nausea, dressing to left knee CDI, no active bleed noted, bilateral dorsalis pedis pulses strong and regular, cap refill to bilateral feet less than 3 seconds, pt. tolerated sips of water well, pt. ambulated to wheelchair with steady gait and no assist, no complications. Pt. tolerated physical therapy well.Gave discharge instructions to the pt. and her ride, both verbalized understanding and had no further questions. Pt. left with all personal belongings.
== END 2025-06-13 13:10 | disposition home or self-care (01) ==
PROVIDERS: Anesthesiology; PCP Internal Medicine; Referring Provider Orthopaedic Surgery Adult Reconstructive Orthopaedic Surgery; Visit Provider Orthopaedic Surgery Adult Reconstructive Orthopaedic Surgery
PROC: (CPT 20985; principal; 2025-06-13 07:30)
DX: M17.12 Unilateral primary osteoarthritis, left knee (principal); Z01.810 Encounter for preprocedural cardiovascular examination; M25.762 Osteophyte, left knee
CPT/HCPCS: 20985; 27447; 36415; 73560; 80053; 85025; 85610; 85730; 93005; 97162; A4217; A4649; C1713; C1776; J0690; J2371; J2704; J2795; J3010; J7999; A4648; A9270

== ENCOUNTER 2025-06-28 10:10 | Outpatient (AMB) | payer MEDICARE, MEDICAID, SELFPAY ==
[2025-06-28 10:27] VITALS: BP 114/63; PULSE 113; RESP 18; TEMP 35.8; O2SAT 95; BMI 33.5
--- NOTE | 2025-06-28 10:27 | ORTHONT_ITS ---
Vital signs 06/28/25 10:27 Height 1.63 m Height Method Stated Weight 89.018 kg Weight Measurement Method Standing Scale BMI 33.5 BP 114/63 Blood Pressure Source Automatic Cuff Blood Pressure Location Left Upper Arm Position Sitting Respiration 18 Pulse 113 H Pulse Source Monitor Temp 96.4 F L Temp Source Temporal Artery Scan Pulse Oximetry (%) 95 Oxygen Delivery Method Room Air Med/Allergies Allergies & Medications Allergies iodine Allergy (Unknown, Verified 06/28/25 10:28) Medication Reconciliation duloxetine 60 mg capsule,delayed release (Cymbalta) 60 mg PO BID 01/10/19 [History Confirmed 06/28/25] gabapentin 600 mg tablet 600 mg PO TID 07/29/24 [History Confirmed 06/28/25] lidocaine 4 % topical patch 1 patch topical QDAY PRN Pain 07/29/24 [History Confirmed 06/28/25] atorvastatin 20 mg tablet 20 mg PO QDAY 08/30/24 [History Confirmed 06/28/25] albuterol sulfate 90 mcg/actuation aerosol inhaler 1 puff inhalation QDAY PRN shortness of breath or wheezing 11/22/24 [History Confirmed 06/28/25] diclofenac sodium 20 mg/gram/actuation (2 %) topical soln metered-dose pump 2 pump topical Q12H 06/09/25 [History Confirmed 06/28/25] esomeprazole magnesium 40 mg capsule,delayed release (Nexium) 40 mg PO QDAY 06/09/25 [History Confirmed 06/28/25] glipizide 2.5 mg tablet, extended release 24 hr 2.5 mg PO QDAY 06/09/25 [History Confirmed 06/28/25] acetaminophen 500 mg tablet (Acetaminophen Extra Strength) 1,000 mg (2 x 500 mg) PO Q6H PRN pain #90 tabs 06/13/25 [Rx Confirmed 06/28/25] aspirin 81 mg tablet,delayed release 81 mg PO BID #60 tabs 06/13/25 [Rx Confirmed 06/28/25] doxycycline hyclate 100 mg tablet 100 mg PO BID #14 tabs 06/13/25 [Rx Confirmed 06/28/25] gabapentin 300 mg capsule 300 mg PO .qhs #30 caps 06/13/25 [Rx Confirmed 06/28/25] oxycodone 5 mg tablet 5 mg PO Q6H PRN pain #28 tabs 06/13/25 [Rx Confirmed 06/28/25] sennosides 8.6 mg-docusate sodium 50 mg tablet (Senna-S) 1 tab-cap PO QDAY #30 tabs 06/13/25 [Rx Confirmed 06/28/25] oxycodone 5 mg tablet 5 mg PO Q6H PRN pain #28 tabs 06/22/25 [Rx Confirmed 06/28/25] Exam Exam Patient is in no acute distress and is cooperative with the examination today. Breathing is nonlabored. Patient has a normal mood and affect. The patient has a gait that is Antalgic. Her hip is internally rotated and her knee appears to be in valgus when she bears weight. When you externally rotate her hip the face the kneecap forward the knee appears to be in great alignment suggesting that this may be compensatory Bilateral extremities were evaluated and demonstrates sensation intact to light touch. Palpable pedal pulses are present. No significant edema is present. Bilateral hips were examined. The patient has no pain with log roll of the hips. Internal rotation to 30 degrees and external rotation to 30 degrees is painless. Negative FADIR. Left knee incision is clean dry and intact. Knee feels stable varus and valgus stress as well as AP translation. Range of motion is 5 to 95 degrees. X-rays of the left knee were obtained. This demonstrates a cementless total knee replacement in alignment position. I did measure her angles. She appears to be in 3 degrees of valgus in the tibia on the full-length tibial films. On the femur films it is hard to measure the angles As there is not a full-length femur fell. The alignment appears to be reasonable and is certainly not as exaggerated as when she ambulates. Assessment and Plan Problem List (1) Arthritis of both knees: Status: Acute Plan: Patient is a 74-year-old female status post left total knee replacement. When she walks, she walks in significant valgus which I think is compensatory. On exam her MCL is intact and on the x-rays when you externally rotate her kneecap to face forward, the alignment looks reasonable. Her tibial component is in the touch and valgus at 2 to 3 degrees. It is certainly not as exaggerated when she walks. I discussed with her that I would like for her to walk and focus on keeping her kneecaps straight as I do think her antalgic and valgus gait may be compensatory. I would also like to reevaluate her when her swelling has decreased. We will see the patient back in approximately 3 weeks to see how she is doing. Will get new x-rays at that time Advanced Care Planning Discussion Advance care planning discussed with:: patient Office Procedures GNS Level of Care Nursing/Assessment Patient Status: Established Patient Nursing Assessment/Reassesment: Medication Reconciliation, Update PMH in EMR and Vital Signs Coordination of Care: Complex Care and Chronic Disease 1-5, Education Complex Pt/Fam, Consent,records obtained, informed consent, Results/Orders obtained and Staff clarify orders Established Patient Charge Established Patient Point Assignment: 95 Established Patient Point Charge: EP Level 3 (80-115) MA Intake Visit Data Collection New Patient or Established: Established Patient (seen at [facility] within 3 years) Reason for Visit:: 2 WEEK L TKA FU Seen by Clinical Staff ONLY (RN/MA): No Verbal consent obtained for Telemed visit?: No Stripper Apprentice Required: No PCP or OBGYN visit in last 3 months: Yes Hx Now: No Do You Feel Safe at Home: Yes Authorities Contacted: N/A Questionairres Past Medical History Past Medical History Have you ever been diagnosed with any of the following: Neurological Problems Cerebrovascular Accident (CVA): No Seizures: No Peripheral Neuropathy: Yes Migraine: Yes Cardiology Problems Hypercholesterolemia: Yes Congestive Heart Failure: No Edema: Yes Deep Vein Thrombosis: Yes (Left arm) Hypertension: Yes Hypotension: Yes Respiratory Problems Chronic Obstructive Pulmonary Disease (COPD): No Asthma: Yes Smoking: No Smoking Cessation Counseling: No Smoking Exposure: No Tobacco Use: No Stomache/Intestinal Problems Diverticulitis: Yes Diverticulosis: Yes Hiatal Hernia: Yes Hemorrhoids: Yes Gastroesophageal Reflux Disease: Yes Obesity: Yes Genital/Urinary Problems Renal Disease: No Kidney Stones: Yes Reproductive Problems Pelvic Inflammatory Disease: No Previous Pregnancies: Yes Musculoskeletal Problems Arthritis: Yes Osteoporosis: Yes Scoliosis: Yes Head,Eye,Nose,Throat Problems Cataracts: Yes Blind: No Endocrine Problems Diabetes Mellitus Type 1: No Diabetes Mellitus Type 2: Yes Blood Problems Anemia: Yes Clotting Problems: Yes Psychologic Problems Depression: Yes Other Problems Hospitalization: Yes Down Syndrome: No Developmental Delay: No Shingles: No Falls: Yes Blood Transfusions: Yes Blood Transfusion Reaction: No Anesthesia Reactions: No Organ Transplant: No Chicken Pox: Yes Measles: Yes Mumps: Yes Cancer: No Surgical History Hysterectomy: Yes Subjective Visit Visit for: follow up visit, post op #1 and knee (LEFT) Immunization / Flu Flu Vaccine in the Last 12 Months: No Flu Vaccine Exclusion Criteria: Already Received History of Present Illness Chief complaint: 2 WEEK LEFT TKA Elda is a 74-year-old female status post left total knee replacement 2 weeks ago. She had some difficulty ambulating initially. She is doing well now. When she walks, her knee actually looks like it is in valgus. If you rotate her hip so that the knee is facing forward, the knee actually looks Like it is in good alignment and I do think this is likely compensatory Personal History Occupation: RETIRED Red flag PMH: BMI BMI Counceling provided: Yes Pain Pain level (0-10): 4 Pain duration: CONSTANT Pain location: inside (medial), outside (lateral), anterior and posterior Pain quality: sharp, dull and aching Pain timing: night and increases with activity Associated signs & symptoms: none Ambulatory data Ambulatory device: walker Walking distance (minutes): 1 Treatments Number of previous injections: 2 Improvement with previous injections: No Number of Physical Therapy sessions: 0 Improvement with PT: No Improvement with NSAIDS: no Review of Systems Review of Systems: All systems negative unless otherwise noted in HPI.
--- NOTE | 2025-06-28 10:55 | XR_ITS ---
Examination: Bilateral AP knees single view Left knee AP supine, PA flexion standing, lateral, axial 4 views TECHNIQUE: Bilateral AP knees standing single view Left knee AP supine, PA flexion standing, lateral standing, axial 4 views total 5 views Date and time: June 28, 2025 1104 hours INDICATIONS: Left knee swelling and pain after knee replacement 06/13/2025. FINDINGS: Moderate osteopenia Moderate to advanced osteoarthritis medial lateral joint spaces right knee Total left knee arthroplasty with satisfactory alignment IMPRESSION: Total left knee arthroplasty with satisfactory alignment
== END 2025-06-28 11:00 | disposition home or self-care (01) ==
LOC: HODSRG 10:10
PROVIDERS: PCP Internal Medicine; Referring Provider Internal Medicine; Supervising Provider Orthopaedic Surgery Adult Reconstructive Orthopaedic Surgery; Visit Provider Orthopaedic Surgery Adult Reconstructive Orthopaedic Surgery
DX: M17.0 Bilateral primary osteoarthritis of knee (principal); Z96.652 Presence of left artificial knee joint; I10 Essential (primary) hypertension; E78.00 Pure hypercholesterolemia, unspecified; Z86.718 Personal history of other venous thrombosis and embolism; K21.9 Gastro-esophageal reflux disease without esophagitis; E66.9 Obesity, unspecified; Z71.3 Dietary counseling and surveillance; Z68.33 Body mass index [BMI] 33.0-33.9, adult
CPT/HCPCS: 73564; 99213; G0463

== ENCOUNTER 2025-07-27 09:35 | Outpatient (RCR) | payer MEDICARE, MEDICAID, SELFPAY ==
--- NOTE | 2025-07-27 10:39 | PT.OIERPT ---
PT OP Initial Eval Patient Information Outpatient Physical Therapy Treatment Date: 07/27/25 Visit Reasons: LEFT TOTAL KNEE Medical Diagnosis: z96.65 Treatment Dx #1: Left Knee Weakness Treatment Dx #2: Abnormal Gait Start of Care: 07/27/25 Date of Onset: 06/13/25 Smoking Status Smoking Status: Never smoker Initial Assessment Subjective: Pt is a 74 y/o female s/p left TKA 06/13/25 due to knee OA. Pt still has a lot of pain (8-9/10) with activities. Pt mentioned since the knee replacement her left leg feels out of place or misaligned. Dr Cook is aware of the situation and plans to consult further in the future. Pt has difficulty with standing, walking, chores, balance, stairs, self care, and performing recreational activities. Objective: Left Knee AROM: -16 deg to 120 deg with pain Left Knee MMTs Quads: 4-/5 Hs: 3+/5 Left Hip MMTs: grossly 3-/5 Standing Posture: increase left knee valgus Gait Observation: increase left LE valgus in stance where knee crosses midline with slight antalgic gait SLS> NT Assessment: Pt demonstrate left knee strength deficits with difficulty walking s/p knee surgery leading to difficulty with ADLs. Pt will benefit from physical therapy to increase strength, work on stability, and ambulation. 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 2) Decrease knee pain to 2/10 in 12 wks to be able to sit and stand more than 30 mins 3) Increase knee MMTs grossly to 4/5 in 12 wks to be able to perform stairs and steps 4) Increase hip MMTs grossly to 4-/5 in 12 wks to be able to walk more than 30 mins 5) Increase SLS to 10 sec in 12 wks to be able to perform self care activities 6) Indep with HEP Treatment Plan 1) Manual Therapy 2) Therapeutic Activities 3) Therapeutic Exercises 4) Modalities (ice, heat) 5) Balance Training 6) Gait Training Frequency and Duration: 2 x wk for 12 wks Certification Dates: 07/27/25 to 10/27/25 Procedure Charges OP PT Eval Mod Complex 30 minutes: Yes
== END 2025-07-29 23:59 | disposition home or self-care (01) ==
LOC: CPTX 09:35
PROVIDERS: PCP Orthopaedic Surgery Adult Reconstructive Orthopaedic Surgery; Referring Provider Orthopaedic Surgery Adult Reconstructive Orthopaedic Surgery; Visit Provider Orthopaedic Surgery Adult Reconstructive Orthopaedic Surgery
DX: Z47.1 Aftercare following joint replacement surgery (principal); Z96.652 Presence of left artificial knee joint; M25.562 Pain in left knee; R53.1 Weakness; R26.2 Difficulty in walking, not elsewhere classified; R26.89 Other abnormalities of gait and mobility
CPT/HCPCS: 97162

== ENCOUNTER 2025-08-02 11:05 | Outpatient (AMB) | payer MEDICARE, MEDICAID, SELFPAY ==
[2025-08-02 11:37] VITALS: BP 120/78; PULSE 91; RESP 18; TEMP 36.7; O2SAT 95; BMI 33.3
--- NOTE | 2025-08-02 11:37 | ORTHONT_ITS ---
Vital signs 08/02/25 11:37 Height 1.63 m Height Method Measured Weight 88.706 kg Weight Measurement Method Standing Scale BMI 33.3 BP 120/78 Blood Pressure Source Automatic Cuff Blood Pressure Location Left Upper Arm Position Sitting Respiration 18 Pulse 91 Pulse Source Monitor Temp 98.1 F Temp Source Temporal Artery Scan Pulse Oximetry (%) 95 Oxygen Delivery Method Room Air Med/Allergies Allergies & Medications Allergies iodine Allergy (Unknown, Verified 08/02/25 11:38) Medication Reconciliation duloxetine 60 mg capsule,delayed release (Cymbalta) 60 mg PO BID 01/10/19 [History Confirmed 08/02/25] gabapentin 600 mg tablet 600 mg PO TID 07/29/24 [History Confirmed 08/02/25] lidocaine 4 % topical patch 1 patch topical QDAY PRN Pain 07/29/24 [History Confirmed 08/02/25] atorvastatin 20 mg tablet 20 mg PO QDAY 08/30/24 [History Confirmed 08/02/25] albuterol sulfate 90 mcg/actuation aerosol inhaler 1 puff inhalation QDAY PRN shortness of breath or wheezing 11/22/24 [History Confirmed 08/02/25] diclofenac sodium 20 mg/gram/actuation (2 %) topical soln metered-dose pump 2 pump topical Q12H 06/09/25 [History Confirmed 08/02/25] esomeprazole magnesium 40 mg capsule,delayed release (Nexium) 40 mg PO QDAY 06/09/25 [History Confirmed 08/02/25] glipizide 2.5 mg tablet, extended release 24 hr 2.5 mg PO QDAY 06/09/25 [History Confirmed 08/02/25] acetaminophen 500 mg tablet (Acetaminophen Extra Strength) 1,000 mg (2 x 500 mg) PO Q6H PRN pain #90 tabs 06/13/25 [Rx Confirmed 08/02/25] aspirin 81 mg tablet,delayed release 81 mg PO BID #60 tabs 06/13/25 [Rx Confirmed 08/02/25] doxycycline hyclate 100 mg tablet 100 mg PO BID #14 tabs 06/13/25 [Rx Confirmed 08/02/25] gabapentin 300 mg capsule 300 mg PO .qhs #30 caps 06/13/25 [Rx Confirmed 08/02/25] oxycodone 5 mg tablet 5 mg PO Q6H PRN pain #28 tabs 06/13/25 [Rx Confirmed 08/02/25] sennosides 8.6 mg-docusate sodium 50 mg tablet (Senna-S) 1 tab-cap PO QDAY #30 tabs 06/13/25 [Rx Confirmed 08/02/25] oxycodone 5 mg tablet 5 mg PO Q6H PRN pain #28 tabs 06/22/25 [Rx Confirmed 08/02/25] Exam Exam Patient is in no acute distress and is cooperative with the examination today. Breathing is nonlabored. Patient has a normal mood and affect. The patient has a gait that is Antalgic. Her hip is internally rotated and her knee appears to be in valgus when she bears weight. When you externally rotate her hip the face the kneecap forward the knee appears to be in great alignment suggesting that this may be compensatory Bilateral extremities were evaluated and demonstrates sensation intact to light touch. Palpable pedal pulses are present. No significant edema is present. Bilateral hips were examined. The patient has no pain with log roll of the hips. Internal rotation to 30 degrees and external rotation to 30 degrees is painless. Negative FADIR. Left knee incision is clean dry and intact. Knee feels stable varus and valgus stress as well as AP translation. Range of motion is 5 to 95 degrees. X-rays of the left knee were obtained. This demonstrates a cementless total knee replacement in alignment position. I did measure her angles. She appears to be in 3 degrees of valgus in the tibia on the full-length tibial films. On the femur films it is hard to measure the angles As there is not a full-length femur fell. The alignment appears to be reasonable and is certainly not as exaggerated as when she ambulates. Assessment and Plan Problem List (1) Arthritis of both knees: Status: Acute Plan: Patient is a 74-year-old female status post left total knee replacement. When she walks, she walks in significant valgus which I think is compensatory. her alignment looks reasonable based on x-rays. I do think that the valgus alignment is typically compensatory. Will see how she does. She reports that she continues to improve. 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 Advanced Care Planning Discussion Advance care planning discussed with:: patient Office Procedures GNS Level of Care Nursing/Assessment Patient Status: Established Patient Nursing Assessment/Reassesment: Medication Reconciliation, Update PMH in EMR and Vital Signs Coordination of Care: Complex Care and Chronic Disease 1-5, Education Complex Pt/Fam, Consent,records obtained, informed consent, Results/Orders obtained and Staff clarify orders Established Patient Charge Established Patient Point Assignment: 95 Established Patient Point Charge: EP Level 3 (80-115) MA Intake Visit Data Collection New Patient or Established: Established Patient (seen at [facility] within 3 years) Reason for Visit:: LEFT TKA Ladle Builder Required: No PCP or OBGYN visit in last 3 months: Yes Hx Now: No Do You Feel Safe at Home: Yes Authorities Contacted: N/A Questionairres Past Medical History Past Medical History Have you ever been diagnosed with any of the following: Neurological Problems Cerebrovascular Accident (CVA): No Seizures: No Peripheral Neuropathy: Yes Migraine: Yes Cardiology Problems Hypercholesterolemia: Yes Congestive Heart Failure: No Edema: Yes Deep Vein Thrombosis: Yes (Left arm) Hypertension: Yes Hypotension: Yes Respiratory Problems Chronic Obstructive Pulmonary Disease (COPD): No Asthma: Yes Smoking: No Smoking Cessation Counseling: No Smoking Exposure: No Tobacco Use: No Stomache/Intestinal Problems Diverticulitis: Yes Diverticulosis: Yes Hiatal Hernia: Yes Hemorrhoids: Yes Gastroesophageal Reflux Disease: Yes Obesity: Yes Genital/Urinary Problems Renal Disease: No Kidney Stones: Yes Reproductive Problems Pelvic Inflammatory Disease: No Previous Pregnancies: Yes Musculoskeletal Problems Arthritis: Yes Osteoporosis: Yes Scoliosis: Yes Head,Eye,Nose,Throat Problems Cataracts: Yes Blind: No Endocrine Problems Diabetes Mellitus Type 1: No Diabetes Mellitus Type 2: Yes Blood Problems Anemia: Yes Clotting Problems: Yes Psychologic Problems Depression: Yes Other Problems Hospitalization: Yes Down Syndrome: No Developmental Delay: No Shingles: No Falls: Yes Blood Transfusions: Yes Blood Transfusion Reaction: No Anesthesia Reactions: No Organ Transplant: No Chicken Pox: Yes Measles: Yes Mumps: Yes Cancer: No Surgical History Hysterectomy: Yes Subjective Visit Visit for: follow up visit and hip Immunization / Flu Flu Vaccine in the Last 12 Months: Yes Flu Vaccine Exclusion Criteria: Already Received History of Present Illness Chief complaint: LT TKA Elda is a 74-year-old female status post left total knee replacement 7 weeks ago. She had some difficulty ambulating initially. She is doing well now. When she walks, her knee actually looks like it is in valgus. If you rotate her hip so that the knee is facing forward, the knee actually looks Like it is in good alignment and I do think this is likely compensatory. She reports the pain continues to improve Personal History Occupation: RETIRED Red flag PMH: BMI BMI Counceling provided: Yes Pain Pain level (0-10): 0 Pain duration: CONSTANT Pain location: inside (medial), outside (lateral), anterior and posterior Pain quality: sharp, dull and aching Pain timing: night and increases with activity Associated signs & symptoms: none Ambulatory data Ambulatory device: walker Walking distance (minutes): 1 Treatments Number of previous injections: 0 Improvement with previous injections: No Number of Physical Therapy sessions: 0 Improvement with PT: No Improvement with NSAIDS: no Review of Systems Review of Systems: All systems negative unless otherwise noted in HPI.
== END 2025-08-02 11:50 | disposition home or self-care (01) ==
LOC: HODSRG 11:05
PROVIDERS: PCP Internal Medicine; Referring Provider Internal Medicine; Supervising Provider Orthopaedic Surgery Adult Reconstructive Orthopaedic Surgery; Visit Provider Orthopaedic Surgery Adult Reconstructive Orthopaedic Surgery
DX: M21.062 Valgus deformity, not elsewhere classified, left knee (principal); M17.0 Bilateral primary osteoarthritis of knee; Z96.652 Presence of left artificial knee joint
CPT/HCPCS: 99213; G0463

== ENCOUNTER 2025-08-11 13:00 | Outpatient (RCR) | payer MEDICARE, MEDICAID, SELFPAY ==
--- NOTE | 2025-08-01 13:42 | PT.ODAYNRPT ---
PT Outpatient Daily Note OP Daily Note Outpatient Physical Therapy Treatment Date: 08/01/25 Visit Reasons: LEFT TOTAL KNEE Subjective: Pt's mention she can't feel have of her knee. Surgeon told her it may take up to 3 months to get her sensory back. Objective: Please see flow chart for list of ther ex performed Assessment: patient demonstrate orthostatic hypotension from supine to sit and sit to stand, however, able to resume exercises after a few seconds of rest. Pt tolerate all exercises with minimal pain. Plan: Continue with PT Length of Time (minutes) of Treatment: 30 Minutes Procedure Charges Therapeutic Exercise 30 minutes: Yes
--- NOTE | 2025-08-04 13:47 | PTNOTE_ITS ---
PT Outpatient Daily Note OP Daily Note Outpatient Physical Therapy Treatment Date: 08/04/25 Visit Reasons: LEFT TOTAL KNEE Subjective: Pt reports compliance with HEP. Pt mentioned her surgeon gave her an ankle support to see if it would help with her medial knee deviation but pt expressed that the ankle support is too tight. Objective: Please see flow sheet for ther ex list. Assessment: Pt pleasant and motivated, added interventions completed with good tolerance. Pt given updated HEP. Plan: Continue with pOC. Length of Time (minutes) of Treatment: 30 Minutes SYSTEM DESIGNER Service Modifier Method I: Divide the number of min of care provided by the SYSTEM DESIGNER/PREFORMS LAMINATOR by the total min of care provided then multiply by 100. If greater than 11 percent modifier is required. Method II: Divide the total time of care provided to patient by 10 (round to the nearest whole number) and add 1 min. to set the minimum time requirement. If treatment total was 60 min., then 10% of 6 min PT CQ modifier applied: CQ Modifier applied Procedure Charges Therapeutic Exercise 30 minutes: Yes
--- NOTE | 2025-08-11 13:35 | PT.ODAYNRPT ---
PT Outpatient Daily Note OP Daily Note Outpatient Physical Therapy Treatment Date: 08/11/25 Visit Reasons: LEFT TOTAL KNEE Subjective: Pt reports on Friday she was at her granddaughters birthday when she sat on a low chair, did not notices how low the chair was until it was too late. Pt c/o having swelling and pain two days after and still sore today but the swelling is gone. Objective: Please see flow sheet for ther ex list. Assessment: Regressed interventions to accommodate reported pain and soreness. No edema or redness of L knee as observed. Recommend she continues to rest and ice over the weekend. Plan: Continue with pOC. Length of Time (minutes) of Treatment: 30 Minutes Procedure Charges Therapeutic Exercise 30 minutes: Yes
--- NOTE | 2025-08-23 13:35 | PTNOTE_ITS ---
PT Outpatient Daily Note OP Daily Note Outpatient Physical Therapy Treatment Date: 08/23/25 Visit Reasons: LEFT TKA Subjective: Pt reports she feels like her knee is misaligned and notices high pain with initial WB like when getting up from chair or bed. Objective: Please see flow sheet for ther ex list. Assessment: Pt unsteady with initial standing due to pain with initial WB. Plan: Continue with poC. Length of Time (minutes) of Treatment: 30 Minutes SPECIAL PROCEDURE TECHNOLOGIST Service Modifier Method I: Divide the number of min of care provided by the SPECIAL PROCEDURE TECHNOLOGIST/GRETCHEN by the total min of care provided then multiply by 100. If greater than 11 percent modifier is required. Method II: Divide the total time of care provided to patient by 10 (round to the nearest whole number) and add 1 min. to set the minimum time requirement. If treatment total was 60 min., then 10% of 6 min PT CQ modifier applied: CQ Modifier applied Procedure Charges Therapeutic Exercise 30 minutes: Yes
== END 2025-08-28 23:59 | disposition home or self-care (01) ==
LOC: CPTX 13:00
PROVIDERS: PCP Orthopaedic Surgery Adult Reconstructive Orthopaedic Surgery; Referring Provider Orthopaedic Surgery Adult Reconstructive Orthopaedic Surgery; Visit Provider Orthopaedic Surgery Adult Reconstructive Orthopaedic Surgery
DX: Z47.1 Aftercare following joint replacement surgery (principal); Z96.652 Presence of left artificial knee joint; M25.562 Pain in left knee; R53.1 Weakness; R26.2 Difficulty in walking, not elsewhere classified; R26.89 Other abnormalities of gait and mobility
CPT/HCPCS: 97110

== ENCOUNTER 2025-09-01 14:47 | Outpatient (AMB) | payer MEDICARE, MEDICAID, SELFPAY ==
[2025-09-01 15:02] VITALS: BP 120/83; PULSE 89; RESP 18; TEMP 36.4; O2SAT 97; BMI 33.7
--- NOTE | 2025-09-01 15:02 | PD.ORTHCLVIS ---
Vital signs 09/01/25 15:02 Height 1.63 m Height Method Stated Weight 89.556 kg Weight Measurement Method Standing Scale BMI 33.7 BP 120/83 Blood Pressure Source Automatic Cuff Blood Pressure Location Right Upper Arm Position Sitting Respiration 18 Pulse 89 Pulse Source Monitor Temp 97.5 F Temp Source Temporal Artery Scan Pulse Oximetry (%) 97 Oxygen Delivery Method Room Air Med/Allergies Allergies & Medications Allergies iodine Allergy (Unknown, Verified 09/01/25 15:05) Medication Reconciliation duloxetine 60 mg capsule,delayed release (Cymbalta) 60 mg PO BID 01/10/19 [History Confirmed 09/01/25] gabapentin 600 mg tablet 600 mg PO TID 07/29/24 [History Confirmed 09/01/25] lidocaine 4 % topical patch 1 patch topical QDAY PRN Pain 07/29/24 [History Confirmed 09/01/25] atorvastatin 20 mg tablet 20 mg PO QDAY 08/30/24 [History Confirmed 09/01/25] albuterol sulfate 90 mcg/actuation aerosol inhaler 1 puff inhalation QDAY PRN shortness of breath or wheezing 11/22/24 [History Confirmed 09/01/25] diclofenac sodium 20 mg/gram/actuation (2 %) topical soln metered-dose pump 2 pump topical Q12H 06/09/25 [History Confirmed 09/01/25] esomeprazole magnesium 40 mg capsule,delayed release (Nexium) 40 mg PO QDAY 06/09/25 [History Confirmed 09/01/25] glipizide 2.5 mg tablet, extended release 24 hr 2.5 mg PO QDAY 06/09/25 [History Confirmed 09/01/25] acetaminophen 500 mg tablet (Acetaminophen Extra Strength) 1,000 mg (2 x 500 mg) PO Q6H PRN pain #90 tabs 06/13/25 [Rx Confirmed 09/01/25] aspirin 81 mg tablet,delayed release 81 mg PO BID #60 tabs 06/13/25 [Rx Confirmed 09/01/25] doxycycline hyclate 100 mg tablet 100 mg PO BID #14 tabs 06/13/25 [Rx Confirmed 09/01/25] gabapentin 300 mg capsule 300 mg PO .qhs #30 caps 06/13/25 [Rx Confirmed 09/01/25] oxycodone 5 mg tablet 5 mg PO Q6H PRN pain #28 tabs 06/13/25 [Rx Confirmed 09/01/25] sennosides 8.6 mg-docusate sodium 50 mg tablet (Senna-S) 1 tab-cap PO QDAY #30 tabs 06/13/25 [Rx Confirmed 09/01/25] oxycodone 5 mg tablet 5 mg PO Q6H PRN pain #28 tabs 06/22/25 [Rx Confirmed 09/01/25] Exam Exam Patient is in no acute distress and is cooperative with the examination today. Breathing is nonlabored. Patient has a normal mood and affect. The patient has a gait that is Antalgic. Her hip is internally rotated and her knee appears to be in valgus when she bears weight. When you externally rotate her hip the face the kneecap forward the knee appears to be in great alignment suggesting that this may be compensatory Bilateral extremities were evaluated and demonstrates sensation intact to light touch. Palpable pedal pulses are present. No significant edema is present. Bilateral hips were examined. The patient has no pain with log roll of the hips. Internal rotation to 30 degrees and external rotation to 30 degrees is painless. Negative FADIR. Left knee incision is clean dry and intact. Knee feels stable varus and valgus stress as well as AP translation. Range of motion is 5 to 95 degrees. X-rays of the left knee were obtained. This demonstrates a cementless total knee replacement in alignment position. I did measure her angles. She appears to be in 3 degrees of valgus in the tibia on the full-length tibial films. On the femur films it is hard to measure the angles As there is not a full-length femur fell. The alignment appears to be reasonable and is certainly not as exaggerated as when she ambulates. Assessment and Plan Problem List (1) Arthritis of both knees: Status: Acute Plan: Patient is a 74-year-old female status post left total knee replacement. She is doing well status post total knee replacement and we will see her back in 4 months for routine follow-up Advanced Care Planning Discussion Advance care planning discussed with:: patient Office Procedures GNS Level of Care Nursing/Assessment Patient Status: Established Patient Nursing Assessment/Reassesment: Medication Reconciliation, Update PMH in EMR and Vital Signs Coordination of Care: Complex Care and Chronic Disease 1-5, Education Complex Pt/Fam, Consent,records obtained, informed consent, Results/Orders obtained and Staff clarify orders Established Patient Charge Established Patient Point Assignment: 95 Established Patient Point Charge: EP Level 3 (80-115) MA Intake Visit Data Collection New Patient or Established: Established Patient (seen at [facility] within 3 years) Reason for Visit:: 4 WK PSOT OP LT TRISH Seen by Clinical Staff ONLY (RN/MA): No Verbal consent obtained for Telemed visit?: No Cost Recorder Required: No PCP or OBGYN visit in last 3 months: Yes Hx Now: No Do You Feel Safe at Home: Yes Authorities Contacted: N/A Questionairres Past Medical History Past Medical History Have you ever been diagnosed with any of the following: Neurological Problems Cerebrovascular Accident (CVA): No Seizures: No Peripheral Neuropathy: Yes Migraine: Yes Cardiology Problems Hypercholesterolemia: Yes Congestive Heart Failure: No Edema: Yes Deep Vein Thrombosis: Yes (Left arm) Hypertension: Yes Hypotension: Yes Respiratory Problems Chronic Obstructive Pulmonary Disease (COPD): No Asthma: Yes Smoking: No Smoking Cessation Counseling: No Smoking Exposure: No Tobacco Use: No Stomache/Intestinal Problems Diverticulitis: Yes Diverticulosis: Yes Hiatal Hernia: Yes Hemorrhoids: Yes Gastroesophageal Reflux Disease: Yes Obesity: Yes Genital/Urinary Problems Renal Disease: No Kidney Stones: Yes Reproductive Problems Pelvic Inflammatory Disease: No Previous Pregnancies: Yes Musculoskeletal Problems Arthritis: Yes Osteoporosis: Yes Scoliosis: Yes Head,Eye,Nose,Throat Problems Cataracts: Yes Blind: No Endocrine Problems Diabetes Mellitus Type 1: No Diabetes Mellitus Type 2: Yes Blood Problems Anemia: Yes Clotting Problems: Yes Psychologic Problems Depression: Yes Other Problems Hospitalization: Yes Down Syndrome: No Developmental Delay: No Shingles: No Falls: Yes Blood Transfusions: Yes Blood Transfusion Reaction: No Anesthesia Reactions: No Organ Transplant: No Chicken Pox: Yes Measles: Yes Mumps: Yes Cancer: No Surgical History Hysterectomy: Yes Subjective Visit Visit for: follow up visit, post op #1 and hip Immunization / Flu Flu Vaccine in the Last 12 Months: Yes Flu Vaccine Exclusion Criteria: Already Received History of Present Illness Chief complaint: LT TKA Elda is a 74-year-old female status post left total knee replacement 12 weeks ago. She had some difficulty ambulating initially. She is doing well now Personal History Occupation: RETIRED Red flag PMH: BMI BMI Counceling provided: Yes Pain Pain level (0-10): 0 Pain duration: CONSTANT Pain location: inside (medial), outside (lateral), anterior and posterior Pain quality: sharp, dull and aching Pain timing: night and increases with activity Associated signs & symptoms: none Ambulatory data Ambulatory device: walker Walking distance (minutes): 1 Treatments Number of previous injections: 0 Improvement with previous injections: No Number of Physical Therapy sessions: 0 Improvement with PT: No Improvement with NSAIDS: no Review of Systems Review of Systems: All systems negative unless otherwise noted in HPI.
== END 2025-09-01 15:09 | disposition home or self-care (01) ==
LOC: HODSRG 14:47
PROVIDERS: PCP Internal Medicine; Referring Provider Internal Medicine; Supervising Provider Orthopaedic Surgery Adult Reconstructive Orthopaedic Surgery; Visit Provider Orthopaedic Surgery Adult Reconstructive Orthopaedic Surgery
DX: Z47.1 Aftercare following joint replacement surgery (principal); Z96.652 Presence of left artificial knee joint; I10 Essential (primary) hypertension; E11.9 Type 2 diabetes mellitus without complications; Z79.84 Long term (current) use of oral hypoglycemic drugs; E66.9 Obesity, unspecified; Z68.33 Body mass index [BMI] 33.0-33.9, adult
CPT/HCPCS: 99213; G0463

== ENCOUNTER 2025-09-28 13:00 | Outpatient (RCR) | payer MEDICARE, MEDICAID, SELFPAY ==
--- NOTE | 2025-08-30 15:06 | PT.ODAYNRPT ---
PT Outpatient Daily Note OP Daily Note Outpatient Physical Therapy Treatment Date: 08/30/25 Visit Reasons: Left eleonora Subjective: Pt's knee is feeling much better. Pt still notice some swelling and redness around the knee. Pt has been able to use her cane lately with more confidence Objective: Left Knee Flexion AROM: 122 deg Assessment: Pt is progressing with knee flexion AROM with less pain reported. Pt's SPC was adjusted and taught how to properly use with gait. Pt still exhibit decrease WB through left LE leading to slight antalgic gait Plan: Continue with PT Length of Time (minutes) of Treatment: 30 Minutes Procedure Charges Therapeutic Exercise 30 minutes: Yes
--- NOTE | 2025-09-02 15:40 | PTNOTE_ITS ---
PT Outpatient Daily Note OP Daily Note Outpatient Physical Therapy Treatment Date: 09/02/25 Visit Reasons: Left eleonora Subjective: Pt reports knee is sore today, went to follow up with surgeon and surgeon content with progress. Pt mentioned the elevator was not working in the doctors office so she had to use the stairs. Objective: Please see flow sheet for ther ex list. Assessment: Interventions given alternating supine and standing to maximize pt participation. Plan: Continue with poC. Length of Time (minutes) of Treatment: 30 Minutes RAIL CAR MAINTENANCE MECHANIC Service Modifier Method I: Divide the number of min of care provided by the RAIL CAR MAINTENANCE MECHANIC/GRETCHEN by the total min of care provided then multiply by 100. If greater than 11 percent modifier is required. Method II: Divide the total time of care provided to patient by 10 (round to the nearest whole number) and add 1 min. to set the minimum time requirement. If treatment total was 60 min., then 10% of 6 min PT CQ modifier applied: CQ Modifier applied Procedure Charges Therapeutic Exercise 30 minutes: Yes
--- NOTE | 2025-09-07 16:10 | PTNOTE_ITS ---
PT Outpatient Daily Note OP Daily Note Outpatient Physical Therapy Treatment Date: 09/07/25 Visit Reasons: Left eleonora Subjective: Pt reports her knee is really sore was out and about all day today in doctor visits and shopping. Objective: Please see flow sheet for ther ex list. Assessment: Regressed interventions to accommodate reported soreness. Plan: Continue with poC. Length of Time (minutes) of Treatment: 30 Minutes PRESS PIPE INSPECTOR Service Modifier Method I: Divide the number of min of care provided by the PRESS PIPE INSPECTOR/GRETCHEN by the total min of care provided then multiply by 100. If greater than 11 percent modifier is required. Method II: Divide the total time of care provided to patient by 10 (round to the nearest whole number) and add 1 min. to set the minimum time requirement. If treatment total was 60 min., then 10% of 6 min PT CQ modifier applied: CQ Modifier applied Procedure Charges Therapeutic Exercise 30 minutes: Yes
--- NOTE | 2025-09-12 13:34 | PT.ODAYNRPT ---
PT Outpatient Daily Note OP Daily Note Outpatient Physical Therapy Treatment Date: 09/12/25 Visit Reasons: Left eleonora Subjective: Pt reports knee is feeling better has not had much pain but still notices knee is crooked . Objective: Please see flow sheet for ther ex list. Assessment: Pt demonstrates increase endurance indicated by pt able to complete added closed chain interventions. Plan: Continue with poC. Length of Time (minutes) of Treatment: 30 Minutes GARAGE DOOR OPENER INSTALLER Service Modifier Method I: Divide the number of min of care provided by the GARAGE DOOR OPENER INSTALLER/PRINCIPAL LAW CLERK by the total min of care provided then multiply by 100. If greater than 11 percent modifier is required. Method II: Divide the total time of care provided to patient by 10 (round to the nearest whole number) and add 1 min. to set the minimum time requirement. If treatment total was 60 min., then 10% of 6 min PT CQ modifier applied: CQ Modifier applied Procedure Charges Therapeutic Exercise 30 minutes: Yes
--- NOTE | 2025-09-14 13:57 | PT.ODAYNRPT ---
PT Outpatient Daily Note OP Daily Note Outpatient Physical Therapy Treatment Date: 09/14/25 Visit Reasons: Left eleonora Subjective: Pt's knee is much better. Pt has stopped using the cane with walking and feels safe. Objective: Please see flow chart for list of ther ex performed Assessment: work on sit to stand today with one bout of dizziness and require sitting rest break. Pt ambulate safely without the cane in the clinic today, however, continues to encourage her to use cane as needed with ambulation Plan: Continue with PT Length of Time (minutes) of Treatment: 30 Minutes Procedure Charges Therapeutic Exercise 30 minutes: Yes
--- NOTE | 2025-09-20 14:41 | PT.ODS1RPT ---
PT OP Progress/Discharge Note Date of Service: 09/20/25 Progress Note/DC Note Progress Note/Discharge Note: Progress Note Patient Information Visit Reasons: Left eleonora Medical Diagnosis: z96.65 Treatment Dx #1: Left Knee Weakness Treatment Dx #2: Abnormal Gait Service Continue Service or Discharge: Continue Service Certification Date Certification Dates: 09/20/25 to 12/19/25 Status Subjective: Pt's knee is feeling much better. Pt has been able to walk longer without her cane. Pt still notice some stiffness in the morning and gait initiation. Pt will like to work on strength, balance, and overall endurance in the next few weeks. Objective: Left Knee AROM: -10 deg to 122 deg Left Knee MMTs: grossly 4/5 Left Hip MMTs: grossly 3/5 Sit-Stand Test: 10 reps SLS: 3 sec Assessment: Pt is progressing with left knee mobility, strength, and overall endurance allowing her to resume ADLs with less limitation. Pt has not met set goals in therapy and will continue to benefit to increase strength, mobility, and work on balance; thank you for your referrals. Plan: Continue with PT/POC Procedure Charges Therapeutic Exercise 30 minutes: Yes
--- NOTE | 2025-09-28 15:41 | PT.ODAYNRPT ---
PT Outpatient Daily Note OP Daily Note Outpatient Physical Therapy Treatment Date: 09/28/25 Visit Reasons: Left eleonora Subjective: Pt's knee seems worse in standing and notice more deviation. Pt's overall knee pain has been less lately. Objective: Please see flow chart for list of ther ex performed Assessment: added more open chain exercises with 1# ankle weight with good tolerance. In standing patient exhibit more knee valgus and increase knee medial knee pain Plan: Continue with PT Length of Time (minutes) of Treatment: 30 Minutes Procedure Charges Therapeutic Exercise 30 minutes: Yes
== END 2025-09-28 23:59 | disposition home or self-care (01) ==
LOC: CPTX 13:00
PROVIDERS: PCP Orthopaedic Surgery Adult Reconstructive Orthopaedic Surgery; Referring Provider Orthopaedic Surgery Adult Reconstructive Orthopaedic Surgery; Visit Provider Orthopaedic Surgery Adult Reconstructive Orthopaedic Surgery
DX: Z47.1 Aftercare following joint replacement surgery (principal); Z96.652 Presence of left artificial knee joint; M25.562 Pain in left knee; R53.1 Weakness; R26.2 Difficulty in walking, not elsewhere classified; R26.89 Other abnormalities of gait and mobility
CPT/HCPCS: 97110